=== PATIENT | male | born 1960 | race Caucasian/White ===

== ENCOUNTER 2019-02-25 01:42 | Inpatient (IN) | payer MEDICAID ==
[~2019-02-25] VITALS: Ht 182.9 cm; Wt 116.8 kg
[~2019-02-25 01:42] MED LIST: COLC0.6T67 PO; HYDR-4383 PO
[2019-02-25 02:00] VITALS: BP 119/91
[2019-02-25] MEDS ORDERED: acetaminophen 325mg tablet PO PRN ×2 (02:00)
[2019-02-25] MEDS ORDERED: mag hydrox/Alum hydrox/simeth 30ml oral suspension PO PRN (02:00)
[2019-02-25] MEDS ORDERED: magnesium hydroxide 30ml (MOM) UD suspension PO PRN (02:00)
[2019-02-25] MEDS ORDERED: HYDROcodone/acetaminophen 10/325mg tab PO PRN (02:00)
[2019-02-25] MEDS ORDERED: HYDROcodone/acetaminophen 5mg/325mg tablet PO PRN ×2 (02:00→13:55)
[2019-02-25] MEDS ORDERED: ondansetron/PF 4mg/2ml inj IV PRN (02:00)
[2019-02-25] MEDS: enoxaparin 100mg/ml syringe SUBCUT SCH ×2 (03:00→14:52)
[2019-02-25] MEDS ORDERED: ACET500C5 PO (03:00)
[2019-02-25] MEDS ORDERED: FENO145T38 PO ×2 (03:00→10:37)
[2019-02-25] MEDS ORDERED: GABA-532 PO ×2 (03:00→03:57)
[2019-02-25] MEDS ORDERED: ALLO100T PO (03:57)
[2019-02-25] MEDS ORDERED: CITA20TA2 PO (03:57)
[2019-02-25] MEDS: normal saline 1000ml 1,000 ML IV SCH ×3 (05:17→16:42)
[2019-02-25 06:00] VITALS: BP 135/96
--- NOTE | 2019-02-25 06:39 | NUR ---
Patient in room PCU 3010. I have received report from Liv GOSS and had the opportunity to ask questions and assume patient care. Pt is on 2L NC in no apparent distress. Pt denies chest pain and SOB. Pt in no apparent distress, will continue to monitor.
[2019-02-25] MEDS: aspirin 81mg tablet.DR PO SCH (08:00)
--- NOTE | 2019-02-25 09:44 | NUR ---
PAGER ID: [phone] MESSAGE: [phone] Kishan Paez Critical trop 5.03, up from 2.61. FYI. Kenyatta GOSS [phone]
[2019-02-25 09:54] LABS: ANION GAP 13 (8-16); BLOOD UREA NITROGEN 58 MG/DL (7-18); BUN/CREATININE RATIO 15.9 (5.4-32.0); CALCIUM 8.4 MG/DL (8.5-10.1); CHLORIDE 103 MMOL/L (99-107); CREATININE 3.65 MG/DL (0.60-1.10); GLUCOSE 115 MG/DL (70-104); POTASSIUM 4.3 MMOL/L (3.5-5.1); SODIUM 135 MMOL/L (135-145); TOTAL CARBON DIOXIDE 18.8 MMOL/L (24-32); eGFR 17 ML/MIN
[2019-02-25] MEDS ORDERED: HYDR-3965 PO (10:35)
[2019-02-25] MEDS ORDERED: COL0.6T PO (10:39)
[2019-02-25 11:16] LABS: BASOPHILS # (AUTO) 0.1 X10'3 (0-0.2); BASOPHILS % (AUTO) 0.9 % (0-1); EOSINOPHILS # (AUTO) 0.1 X10'3 (0-0.9); EOSINOPHILS % (AUTO) 1.1 % (0-6); HEMATOCRIT 34.8 % (42.0-52.0); HEMOGLOBIN 10.6 g/dl (14.0-17.9); LYMPHOCYTES # (AUTO) 1.4 X10'3 (1.1-4.8); LYMPHOCYTES % (AUTO) 15.6 % (21-51); MEAN CORPUSCULAR HEMOGLOBIN 26.2 PG (27.0-31.0); MEAN CORPUSCULAR HGB CONC 30.5 g/dL (33.0-36.5); MEAN CORPUSCULAR VOLUME 85.8 FL (78-98); MEAN PLATELET VOLUME 8.6 FL (7.4-10.4); MONOCYTES % (AUTO) 11.1 % (2-12); NEUTROPHILS # (AUTO) 6.6 X10'3 (1.8-7.7); NEUTROPHILS % (AUTO) 71.3 % (42-75); PLATELET COUNT 407 X10'3 (140-440); RED BLOOD COUNT 4.06 X10'6 (4.70-6.10); RED CELL DISTRIBUTION WIDTH 18.2 % (11.5-14.5); WHITE BLOOD COUNT 9.3 X10'3 (4.5-11.0)
[2019-02-25] MEDS ORDERED: colchicine 0.6mg tablet PO PRN (13:55)
--- NOTE | 2019-02-25 14:45 | NUR ---
Problems reprioritized. Patient report given, questions answered & plan of care reviewed with Logan GOSS.
--- NOTE | 2019-02-25 14:46 | NUR ---
PAGER ID: [phone] MESSAGE: [phone] Vinicius Philippe: Trop up to 8.01 WOLFGANG Ford Ext 1490
[2019-02-25] MEDS: carVEDilol 3.125mg tablet PO SCH ×2 (14:52→20:00)
--- NOTE | 2019-02-25 14:57 | NUR ---
Patient in room PCU 3010. I have received report from WOLFGANG You and had the opportunity to ask questions and assume patient care.
[2019-02-25 15:00] VITALS: BP 117/83
--- NOTE | 2019-02-25 17:10 | NUR ---
PAGER ID: [phone] MESSAGE: [phone] Vinicius Paez: Do you want Diabetic protocol orders on him? WOLFGANG Ford Ext 6220 Addendum: 02/25/19 at 1713 by Logan Gonzalez RN Dr Wing said to do accuchecks but not DM protocol due to kidneys.
--- NOTE | 2019-02-25 17:36 | NUR ---
PAGER ID: [phone] MESSAGE: [phone] Vinicius Paez: Stool too formed for c-diff. Lab told me to angelescel WOLFGANG Ford Ext 6110
[2019-02-25 18:00] VITALS: BP 115/84
--- NOTE | 2019-02-25 18:20 | NUR ---
Problems reprioritized. Patient report given, questions answered & plan of care reviewed with WOLFGANG Watters.
--- NOTE | 2019-02-25 18:25 | NUR ---
Patient in room PCU 3010. I have received report from Aleah GOSS and had the opportunity to ask questions and assume patient care. Addendum: 02/25/19 at 1829 by Janene Quezada RN Logan GOSS
--- NOTE | 2019-02-25 19:14 | NUR ---
trop came back 14.09, previous trop was 8.01, currently trying to contact [facility]
[2019-02-25] MEDS: gabapentin 300mg capsule PO PRN (20:22)
--- NOTE | 2019-02-25 21:36 | NUR ---
called [facility], said pad making machine operator and AM will have a plab with pt, called Dr. Lombardi, about his elevated troponin 14.01 he said the treatment for pt is lovenox, coreg, statin and asprin and its fine if pt asymptomatic. pt refused coreg during med pass, will explain to pt again during hourly rounding
[2019-02-25 23:00] VITALS: BP 139/83
[2019-02-26 03:00] VITALS: BP 133/66
[2019-02-26] MEDS: enoxaparin 100mg/ml syringe SUBCUT SCH (03:00)
[2019-02-26 06:00] VITALS: BP 128/77
--- NOTE | 2019-02-26 06:08 | NUR ---
Patient in room PCU 3010. I have received report from WOLFGANG Watters and had the opportunity to ask questions and assume patient care.
[2019-02-26 06:28] LABS: ALANINE AMINOTRANSFERASE 625 U/L (12-78); ALBUMIN 1.9 G/DL (3.4-5.0); ALBUMIN/GLOBULIN RATIO 0.4 (1.1-1.5); ALKALINE PHOSPHATASE 100 IU/L (46-116); ANION GAP 10 (8-16); ASPARTATE AMINO TRANSFERASE 957 U/L (10-37); BILIRUBIN,TOTAL 0.5 MG/DL (0.1-1.0); BLOOD UREA NITROGEN 62 MG/DL (7-18); BUN/CREATININE RATIO 15.5 (5.4-32.0); CALCIUM 8.5 MG/DL (8.5-10.1); CHLORIDE 101 MMOL/L (99-107); CHOL/HDL RATIO 9.9 (0.00-4.99); CHOLESTEROL 129 MG/DL (0-200); GLUCOSE 91 MG/DL (70-104); HDL CHOLESTEROL 13 MG/DL (35-60); LDL CHOLESTEROL 93 MG/DL (50-100); MAGNESIUM 1.9 MG/DL (1.5-2.4); POTASSIUM 4.4 MMOL/L (3.5-5.1); SODIUM 133 MMOL/L (135-145); TOTAL CARBON DIOXIDE 21.9 MMOL/L (24-32); TOTAL PROTEIN 6.8 G/DL (6.4-8.2); TRIGLYCERIDES 143 MG/DL (20-135); eGFR 15 ML/MIN
[2019-02-26 06:36] LABS: BASOPHILS # (AUTO) 0.1 X10'3 (0-0.2); BASOPHILS % (AUTO) 0.7 % (0-1); EOSINOPHILS # (AUTO) 0.1 X10'3 (0-0.9); HEMATOCRIT 34.6 % (42.0-52.0); HEMOGLOBIN 10.7 g/dl (14.0-17.9); LYMPHOCYTES # (AUTO) 1.5 X10'3 (1.1-4.8); LYMPHOCYTES % (AUTO) 16.3 % (21-51); MEAN CORPUSCULAR HEMOGLOBIN 26.6 PG (27.0-31.0); MEAN CORPUSCULAR HGB CONC 30.9 g/dL (33.0-36.5); MEAN CORPUSCULAR VOLUME 86.1 FL (78-98); MEAN PLATELET VOLUME 8.8 FL (7.4-10.4); NEUTROPHILS # (AUTO) 6.7 X10'3 (1.8-7.7); PLATELET COUNT 391 X10'3 (140-440); RED BLOOD COUNT 4.02 X10'6 (4.70-6.10); RED CELL DISTRIBUTION WIDTH 18.1 % (11.5-14.5); WHITE BLOOD COUNT 9.5 X10'3 (4.5-11.0)
--- NOTE | 2019-02-26 06:41 | NUR ---
Problems reprioritized. Patient report given, questions answered & plan of care reviewed with WOLFGANG You.
--- NOTE | 2019-02-26 06:44 | NUR ---
Problems reprioritized. Patient report given, questions answered & plan of care reviewed with Logan GOSS.
[2019-02-26] MEDS ORDERED: heparin 10,000 units/1 ML INJ IV ONE (06:50)
[2019-02-26] MEDS: citalopram 20mg tablet PO SCH (07:33)
[2019-02-26] MEDS: carVEDilol 3.125mg tablet PO SCH ×2 (07:33→19:36)
[2019-02-26] MEDS: aspirin 81mg tablet.DR PO SCH (07:33)
[2019-02-26 07:42] LABS: NUCLEATED RED BLOOD CELLS 2 /100WBC (0-0); TOTAL CELLS COUNTED 100
[2019-02-26 07:44] LABS: ANISOCYTOSIS 2+; BURR CELLS 1+; HYPOCHROMASIA 1+; PLATELET ESTIMATE NORMAL; POLYCHROMASIA 1+; ROULEAUX 1+; TARGET CELLS FEW
[2019-02-26] MEDS: heparin 25,000 UNIT/250ml bag 250 ML IV SCH ×3 (07:48→23:40)
[2019-02-26] MEDS: normal saline 1000ml 1,000 ML IV SCH ×2 (07:57→17:57)
[2019-02-26] MEDS ORDERED: lisinopril 5mg tablet PO SCH (08:00)
[2019-02-26] MEDS ORDERED: allopurinol 100mg tablet PO SCH (08:00)
[2019-02-26] MEDS: fenofibrate 145mg tablet PO SCH (08:04)
[2019-02-26 08:15] LABS: BASOPHILS # (AUTO) 0.1 X10'3 (0-0.2); BASOPHILS % (AUTO) 0.7 % (0-1); EOSINOPHILS # (AUTO) 0.1 X10'3 (0-0.9); EOSINOPHILS % (AUTO) 1.1 % (0-6); HEMATOCRIT 34.4 % (42.0-52.0); HEMOGLOBIN 10.7 g/dl (14.0-17.9); LYMPHOCYTES # (AUTO) 1.2 X10'3 (1.1-4.8); LYMPHOCYTES % (AUTO) 13.8 % (21-51); MEAN CORPUSCULAR HEMOGLOBIN 26.4 PG (27.0-31.0); MEAN CORPUSCULAR HGB CONC 31.1 g/dL (33.0-36.5); MEAN PLATELET VOLUME 8.8 FL (7.4-10.4); MONOCYTES # (AUTO) 0.7 X10'3 (0-0.9); MONOCYTES % (AUTO) 8.6 % (2-12); NEUTROPHILS # (AUTO) 6.4 X10'3 (1.8-7.7); NEUTROPHILS % (AUTO) 75.8 % (42-75); PLATELET COUNT 385 X10'3 (140-440); RED BLOOD COUNT 4.05 X10'6 (4.70-6.10); RED CELL DISTRIBUTION WIDTH 18.2 % (11.5-14.5); WHITE BLOOD COUNT 8.4 X10'3 (4.5-11.0)
[2019-02-26] MEDS ORDERED: loperamide 2mg capsule PO PRN (08:55)
[2019-02-26] MEDS: metroNIDAZOLE 500mg tablet PO SCH ×3 (08:57→23:48)
[2019-02-26 09:01] LABS: PARTIAL THROMBOPLASTIN TIME 29 SECONDS (22-32)
[2019-02-26 11:00] VITALS: BP 115/85
[2019-02-26] MEDS: heparin 10,000 units/1 ML INJ IV PRN ×2 (14:29→23:38)
[2019-02-26 15:00] VITALS: BP 124/82
--- NOTE | 2019-02-26 16:59 | NUR ---
PAGER ID: [phone] MESSAGE: [phone] Vinicius Paez Can I get an order for a urojet (lidocaine). Pt screaming profanity while attempting to place mejia, I also felt some resistance. Please call Kenyatta #[phone]
--- NOTE | 2019-02-26 18:46 | NUR ---
Problems reprioritized. Patient report given, questions answered & plan of care reviewed with María GOSS.
[2019-02-26] MEDS ORDERED: LIDOcaine 2% 10ml TOPICAL JELLY (Urojet) MM ONE (18:50)
[2019-02-26] MEDS: gabapentin 300mg capsule PO PRN (19:36)
[2019-02-26 20:00] VITALS: BP 104/55
[2019-02-26 23:00] VITALS: BP 117/86
[2019-02-27 03:00] VITALS: BP 94/63
[2019-02-27] MEDS: normal saline 1000ml 1,000 ML IV SCH ×2 (03:57→14:03)
[2019-02-27 05:12] LABS: BASOPHILS # (AUTO) 0.1 X10'3 (0-0.2); BASOPHILS % (AUTO) 1.1 % (0-1); EOSINOPHILS # (AUTO) 0.2 X10'3 (0-0.9); EOSINOPHILS % (AUTO) 2.8 % (0-6); HEMATOCRIT 30.2 % (42.0-52.0); HEMOGLOBIN 9.5 g/dl (14.0-17.9); LYMPHOCYTES # (AUTO) 1.3 X10'3 (1.1-4.8); LYMPHOCYTES % (AUTO) 20.4 % (21-51); MEAN CORPUSCULAR HEMOGLOBIN 26.3 PG (27.0-31.0); MEAN CORPUSCULAR HGB CONC 31.5 g/dL (33.0-36.5); MEAN CORPUSCULAR VOLUME 83.5 FL (78-98); MEAN PLATELET VOLUME 8.5 FL (7.4-10.4); MONOCYTES # (AUTO) 0.8 X10'3 (0-0.9); MONOCYTES % (AUTO) 12.6 % (2-12); NEUTROPHILS % (AUTO) 63.1 % (42-75); PLATELET COUNT 300 X10'3 (140-440); RED BLOOD COUNT 3.62 X10'6 (4.70-6.10); RED CELL DISTRIBUTION WIDTH 18.6 % (11.5-14.5); WHITE BLOOD COUNT 6.3 X10'3 (4.5-11.0)
[2019-02-27 06:30] LABS: ALANINE AMINOTRANSFERASE 483 U/L (12-78); ALBUMIN 1.8 G/DL (3.4-5.0); ALBUMIN/GLOBULIN RATIO 0.4 (1.1-1.5); ALKALINE PHOSPHATASE 92 IU/L (46-116); ANION GAP 11 (8-16); ASPARTATE AMINO TRANSFERASE 468 U/L (10-37); BILIRUBIN,TOTAL 0.3 MG/DL (0.1-1.0); BLOOD UREA NITROGEN 66 MG/DL (7-18); BUN/CREATININE RATIO 16.1 (5.4-32.0); CALCIUM 8.3 MG/DL (8.5-10.1); CHLORIDE 101 MMOL/L (99-107); CREATININE 4.09 MG/DL (0.60-1.10); GLUCOSE 129 MG/DL (70-104); MAGNESIUM 1.7 MG/DL (1.5-2.4); POTASSIUM 3.9 MMOL/L (3.5-5.1); SODIUM 131 MMOL/L (135-145); TOTAL CARBON DIOXIDE 19.1 MMOL/L (24-32); TOTAL PROTEIN 6.3 G/DL (6.4-8.2); eGFR 15 ML/MIN
--- NOTE | 2019-02-27 06:31 | NUR ---
Patient in room PCU 3010. I have received report from Baltazar GOSS and had the opportunity to ask questions and assume patient care.
[2019-02-27] MEDS: heparin 10,000 units/1 ML INJ IV PRN (06:39)
[2019-02-27] MEDS: heparin 25,000 UNIT/250ml bag 250 ML IV SCH (06:43)
[2019-02-27 07:00] VITALS: BP 98/62
[2019-02-27] MEDS ORDERED: atorvastatin 20mg tablet PO SCH (08:00)
[2019-02-27] MEDS: carVEDilol 3.125mg tablet PO SCH (09:05)
[2019-02-27] MEDS: aspirin 81mg tablet.DR PO SCH (09:05)
[2019-02-27] MEDS: metroNIDAZOLE 500mg tablet PO SCH (09:05)
[2019-02-27] MEDS: citalopram 20mg tablet PO SCH (09:05)
[2019-02-27] MEDS: fenofibrate 145mg tablet PO SCH (09:05)
[2019-02-27 11:00] VITALS: BP 110/79
--- NOTE | 2019-02-27 14:03 | NUR ---
Pt's cardiac PTT is 44, however, pt pulled out his IV this morning and pt went about an hour off Heparin gtt. Heparin gtt resumed at 1900 units/hour once new IV was placed. In my clinical judgment it is inappropriate to bolus and increase infusion rate at this time, notified charge nurse and she is in agreement. PTT is scheduled six hours from 1300. Will continue to monitor.
--- NOTE | 2019-02-27 14:41 | NUR ---
PAGER ID: [phone] MESSAGE: [phone] Vinicius Paez Pt stating that he is going to leave AMA. Pt is willing to talk to doctor first. Please call Kenyatta#[phone]
--- NOTE | 2019-02-27 15:00 | NUR ---
Pt signed AMA form and is refusing all medical treatment. Pt not wanting to talk to MD. Landeros RN and myself have both educated pt on importance of staying in the hospital for medical treatment. However, pt stated that he already called his nurse healthcare manager Sandhya and that she is on her way from [place] to pick him up. Dr. Camacho is aware of this. IV discontinued with canula intact and tele monitor is off patient.
--- NOTE | 2019-02-27 17:40 | NUR ---
Pt left AMA. Pt specifically denied suicidal ideations.
== END 2019-02-27 17:30 | disposition left against medical advice (07) | DRG 190 ==
LOC: PCU 3S 01:42
PROVIDERS: ADMIT Hospitalist; ATTEND Internal Medicine
DX: I21.4 Non-ST elevation (NSTEMI) myocardial infarction (principal); N17.9 Acute kidney failure, unspecified; E11.22 Type 2 diabetes mellitus with diabetic chronic kidney disease; E11.42 Type 2 diabetes mellitus with diabetic polyneuropathy; E11.51 Type 2 diabetes mellitus with diabetic peripheral angiopathy without gangrene; E78.00 Pure hypercholesterolemia, unspecified; E78.1 Pure hyperglyceridemia; E86.0 Dehydration; F14.10 Cocaine abuse, uncomplicated; F15.10 Other stimulant abuse, uncomplicated; I42.9 Cardiomyopathy, unspecified; Z53.21 Procedure and treatment not carried out due to patient leaving prior to being seen by health care provider; F17.210 Nicotine dependence, cigarettes, uncomplicated; I07.1 Rheumatic tricuspid insufficiency; I07.9 Rheumatic tricuspid valve disease, unspecified; D64.9 Anemia, unspecified; I13.0 Hypertensive heart and chronic kidney disease with heart failure and stage 1 through stage 4 chronic kidney disease, or unspecified chronic kidney disease; I45.10 Unspecified right bundle-branch block; I50.22 Chronic systolic (congestive) heart failure; J44.9 Chronic obstructive pulmonary disease, unspecified; R19.7 Diarrhea, unspecified; M10.9 Gout, unspecified; N18.9 Chronic kidney disease, unspecified; Z86.79 Personal history of other diseases of the circulatory system; Z79.899 Other long term (current) drug therapy; Z71.6 Tobacco abuse counseling; Z71.51 Drug abuse counseling and surveillance of drug abuser
CPT/HCPCS: 36415; 74176; 80048; 80053; 80061; 82948; 83036; 83735; 84484; 85025; 85610; 85730; 87070; 93005; 93306; 99285; G0378; J1644; J1650; J3490; J7030

== ENCOUNTER 2019-02-28 23:48 | Inpatient (IN) | payer MEDICAID ==
[~2019-02-28] VITALS: Ht 182.9 cm; Wt 105.5 kg
[~2019-02-28 23:48] MED LIST changes: +ALLO100T PO; +CITA20TA2 PO; +COL0.6T PO; -COLC0.6T67 PO; +FENO145T38 PO; +GABA-532 PO; +HYDR-3965 PO; -HYDR-4383 PO
--- NOTE | 2019-02-28 23:53 | NUR ---
REPORT RECEIVED FROM JENNIFER BAIRES, RN FROM [facility] AT 22:33: [phone] CALLBACK # ACCEPTING MD: TOSHA PATIENT HAD STEMI HERE AT [facility] ON 02/25 AND LEFT AMA 02/27 C/O SOB NO ST ELEVATION: SR NO ECTOPY, 96% ON RA, AXOX4, DENIES PAIN LEFT FA 20G SL MEDICATIONS GIVEN: 100 MG SQ LOVENOX, 325 ASA LABS: TROPONIN 14.3, BNP 7410 HGB 9.4, CREAtinine 3.8, PLT 327
[2019-03-01] MEDS ORDERED: LORazepam 2 mg/ml vial IV ONE (01:00)
[2019-03-01 01:08] LABS: CLARITY,URINE CLEAR (Clear); COLOR,URINE YELLOW (Yellow); GLUCOSE, URINE NEGATIVE (Neg); KETONES,URINE NEGATIVE (Neg); LEUKOCYTE ESTERASE ,URINE NEGATIVE (Neg); NITRITES, URINE NEGATIVE (Neg); OCCULT BLOOD,URINE SMALL (Neg); PH,URINE 5.5 (4.8-8.0); PROTEIN,URINE 100 mg/dl (Neg); UROBILINOGEN,URINE 0.2 E.U/dL (0.2-1.0)
[2019-03-01] MEDS ORDERED: carVEDilol 12.5mg tablet PO ONE (01:10)
[2019-03-01 01:14] LABS: UA COLLECTION TYPE URINAL
[2019-03-01 01:15] LABS: BACTERIA,URINE FEW /HPF (Neg); RBC,URINE FEW /HPF (0-2); WBC,URINE 0-4 /HPF (0-4)
[2019-03-01 01:20] LABS: SQUAMOUS EPITHELIAL CELL,UR FEW /LPF (FEW)
[2019-03-01 02:00] LABS: BASOPHILS % (AUTO) 0.2 % (0-1); EOSINOPHILS # (AUTO) 0.1 X10'3 (0-0.9); EOSINOPHILS % (AUTO) 1.1 % (0-6); HEMATOCRIT 32.2 % (42.0-52.0); HEMOGLOBIN 10.2 g/dl (14.0-17.9); LYMPHOCYTES # (AUTO) 1.7 X10'3 (1.1-4.8); LYMPHOCYTES % (AUTO) 21.9 % (21-51); MEAN CORPUSCULAR HEMOGLOBIN 26.2 PG (27.0-31.0); MEAN CORPUSCULAR HGB CONC 31.6 g/dL (33.0-36.5); MEAN PLATELET VOLUME 8.5 FL (7.4-10.4); MONOCYTES # (AUTO) 0.9 X10'3 (0-0.9); MONOCYTES % (AUTO) 10.9 % (2-12); NEUTROPHILS # (AUTO) 5.2 X10'3 (1.8-7.7); NEUTROPHILS % (AUTO) 65.9 % (42-75); PLATELET COUNT 356 X10'3 (140-440); RED BLOOD COUNT 3.88 X10'6 (4.70-6.10); RED CELL DISTRIBUTION WIDTH 18.2 % (11.5-14.5); WHITE BLOOD COUNT 7.8 X10'3 (4.5-11.0)
[2019-03-01] MEDS ORDERED: magnesium Cl slow-release 64mg tablet PO PRN (02:10)
[2019-03-01] MEDS ORDERED: potassium Cl 20 mEq SR tablet PO PRN ×2 (02:10)
[2019-03-01] MEDS ORDERED: mag hydrox/Alum hydrox/simeth 30ml oral suspension PO PRN (02:10)
[2019-03-01] MEDS ORDERED: magnesium hydroxide 30ml (MOM) UD suspension PO PRN (02:10)
[2019-03-01] MEDS ORDERED: morphine 2 MG/ML inj. syringe IV PRN ×2 (02:10)
[2019-03-01] MEDS ORDERED: magnesium 4gm in 100ml NS 100 ML IV PRN (02:10)
[2019-03-01] MEDS ORDERED: bisacodyl 10mg suppository rectal RC PRN (02:10)
[2019-03-01] MEDS ORDERED: potassium Cl 40MEQ/NS 500ml 500 ML IV PRN (02:10)
[2019-03-01] MEDS ORDERED: potassium CL 10mEq/100ml bag 100 ML IV PRN (02:10)
[2019-03-01] MEDS ORDERED: magnesium 2GM in 50ml NS 50 ML IV PRN (02:10)
[2019-03-01] MEDS ORDERED: acetaminophen 325mg tablet PO PRN (02:10)
[2019-03-01 02:12] LABS: PARTIAL THROMBOPLASTIN TIME 36 SECONDS (22-32)
[2019-03-01] MEDS ORDERED: heparin 25,000 UNIT/250ml bag 250 ML IV SCH (02:13)
[2019-03-01] MEDS ORDERED: nitroGLYCERIN 0.4mg SUBLingual tab SL PRN (02:15)
[2019-03-01] MEDS ORDERED: heparin 10,000 units/1 ML INJ IV ONE (02:15)
[2019-03-01] MEDS ORDERED: heparin 10,000 units/1 ML INJ IV PRN (02:15)
[2019-03-01] MEDS: nitroGLYCERIN 0.2mg/hour patch TD SCH ×2 (02:15→08:32)
[2019-03-01] MEDS ORDERED: insulin Lispro (HumaLOG) vial - multi-dose SQ SCH (02:20)
[2019-03-01] MEDS ORDERED: dextrose ORAL solution 15 GM/59 ML bottle PO PRN ×2 (02:20)
[2019-03-01] MEDS ORDERED: glucagon, human recombinant 1mg kit SUBCUT PRN (02:20)
[2019-03-01] MEDS ORDERED: dextrose 50%-water 50ml dispensing syringe IV PRN ×2 (02:20)
[2019-03-01] MEDS ORDERED: MESSAGE TO PHARMACY PO ONE (02:20)
[2019-03-01 02:21] LABS: ALANINE AMINOTRANSFERASE 334 U/L (12-78); ALBUMIN 2.2 G/DL (3.4-5.0); ALBUMIN/GLOBULIN RATIO 0.5 (1.1-1.5); ALKALINE PHOSPHATASE 87 IU/L (46-116); ANION GAP 10 (8-16); ASPARTATE AMINO TRANSFERASE 228 U/L (10-37); BILIRUBIN,TOTAL 0.4 MG/DL (0.1-1.0); BLOOD UREA NITROGEN 83 MG/DL (7-18); CALCIUM 8.5 MG/DL (8.5-10.1); CHLORIDE 102 MMOL/L (99-107); CREATININE 4.14 MG/DL (0.60-1.10); ETHANOL < 0.010 GM/DL (0.0-0.010); GLUCOSE 97 MG/DL (70-104); MAGNESIUM 2.2 MG/DL (1.5-2.4); POTASSIUM 4.1 MMOL/L (3.5-5.1); SODIUM 135 MMOL/L (135-145); TOTAL CARBON DIOXIDE 23.2 MMOL/L (24-32); eGFR 15 ML/MIN
[2019-03-01] MEDS: furosemide 40mg/4ml inj IV SCH ×3 (04:07→19:41)
[2019-03-01] MEDS: aspirin 325mg tablet, delayed-release (Ecotrin) PO SCH ×2 (04:11→08:00)
--- NOTE | 2019-03-01 04:37 | NUR ---
Patient in room . I have received report from Stephanie GOSS and had the opportunity to ask questions and assume patient care.
--- NOTE | 2019-03-01 04:37 | NUR ---
PAGER ID: [phone] MESSAGE: Vinicius Molina transferring from ER to PCU has bipap order without ABG done, can you put on an order for ABG. Thanks, Janene [phone]!
--- NOTE | 2019-03-01 04:39 | NUR ---
dr. cantu called back siad "pt don need bipap, no ABG needed, pit him on nasal canula 2-3L, O2 about 92%."
--- NOTE | 2019-03-01 05:35 | NUR ---
pt is very SOB, heparin gtt @1000, NS @ 2L, anxious and restless
[2019-03-01 06:00] VITALS: BP 107/73
--- NOTE | 2019-03-01 06:24 | NUR ---
Problems reprioritized. Patient report given, questions answered & plan of care reviewed with Leeanna GOSS.
--- NOTE | 2019-03-01 06:31 | NUR ---
Patient in room U 3024B. I have received report from Janene GOSS and had the opportunity to ask questions and assume patient care.
[2019-03-01] MEDS: carvedilol 6.25mg tablet PO SCH ×3 (08:00→20:28)
[2019-03-01] MEDS: docusate sod 100mg capsule PO SCH ×2 (08:00→19:43)
[2019-03-01] MEDS: K and/or MAG REPLACEMENT MC SCH (08:00)
--- NOTE | 2019-03-01 08:00 | NUR ---
Paged Dr Camacho regarding critical trop PAGER ID: [phone] MESSAGE: Leeanna [phone]. Kishan Larson 3024B Critical trop reported from lab of , down from prior trop of
[2019-03-01 11:00] VITALS: BP 117/97
[2019-03-01] MEDS ORDERED: HYDROcodone/acetaminophen 5mg/325mg tablet PO PRN (11:50)
[2019-03-01 12:23] LABS: URINE AMPHETAMINE SCREEN NEGATIVE (Neg); URINE BARBITUATE SCREEN NEGATIVE (Neg); URINE BENZODIAZEPINES SCREEN NEGATIVE (Neg); URINE CANNABINOID SCREEN NEGATIVE (Neg); URINE COCAINE SCREEN NEGATIVE (Neg); URINE METHADONE SCREEN NEGATIVE (Neg); URINE OPIATE SCREEN NEGATIVE (Neg); URINE PHENCYCLIDINE SCREEN NEGATIVE (Neg)
--- NOTE | 2019-03-01 12:23 | NUR ---
Paged Dr Camacho regarding critical trop PAGER ID: [phone] MESSAGE: Leeanna [phone]. Kishan Larson [id number]. Lab called critical trop of 14.93
[2019-03-01 15:00] VITALS: BP 101/64
[2019-03-01] MEDS ORDERED: METO-384 PO (16:04)
[2019-03-01] MEDS ORDERED: MELO-102 PO (16:05)
[2019-03-01] MEDS ORDERED: INSU100I39 SUBCUT (16:05)
[2019-03-01] MEDS ORDERED: AMLO5TAB16 PO (16:05)
[2019-03-01] MEDS ORDERED: BECL10.62 INH (16:07)
--- NOTE | 2019-03-01 18:05 | NUR ---
Patient in room PCU 3024. I have received report from Leeanna GOSS and had the opportunity to ask questions and assume patient care.
--- NOTE | 2019-03-01 18:22 | NUR ---
Problems reprioritized. Patient report given, questions answered & plan of care reviewed with Janene GOSS.
[2019-03-01 19:00] VITALS: BP 124/100
[2019-03-01] MEDS: heparin, porcine 5000 units/ml vial SQ SCH (19:43)
[2019-03-01 23:00] VITALS: BP 101/58
[2019-03-02 01:10] LABS: TOTAL PROTEIN,URINE RANDOM 69.9 MG/DL
[2019-03-02 03:00] VITALS: BP 139/91
[2019-03-02 05:08] LABS: BASOPHILS % (AUTO) 0.6 % (0-1); EOSINOPHILS # (AUTO) 0.1 X10'3 (0-0.9); EOSINOPHILS % (AUTO) 1.9 % (0-6); HEMATOCRIT 30.4 % (42.0-52.0); HEMOGLOBIN 9.7 g/dl (14.0-17.9); LYMPHOCYTES # (AUTO) 1.3 X10'3 (1.1-4.8); LYMPHOCYTES % (AUTO) 23.5 % (21-51); MEAN CORPUSCULAR HEMOGLOBIN 26.2 PG (27.0-31.0); MEAN PLATELET VOLUME 8.1 FL (7.4-10.4); MONOCYTES # (AUTO) 0.6 X10'3 (0-0.9); MONOCYTES % (AUTO) 10.2 % (2-12); NEUTROPHILS # (AUTO) 3.6 X10'3 (1.8-7.7); NEUTROPHILS % (AUTO) 63.8 % (42-75); PLATELET COUNT 295 X10'3 (140-440); RED BLOOD COUNT 3.71 X10'6 (4.70-6.10); RED CELL DISTRIBUTION WIDTH 17.9 % (11.5-14.5); WHITE BLOOD COUNT 5.7 X10'3 (4.5-11.0)
[2019-03-02 05:26] LABS: ALANINE AMINOTRANSFERASE 252 U/L (12-78); ALBUMIN/GLOBULIN RATIO 0.4 (1.1-1.5); ALKALINE PHOSPHATASE 77 IU/L (46-116); ANION GAP 10 (8-16); ASPARTATE AMINO TRANSFERASE 130 U/L (10-37); BILIRUBIN,TOTAL 0.5 MG/DL (0.1-1.0); BLOOD UREA NITROGEN 77 MG/DL (7-18); BUN/CREATININE RATIO 20.3 (5.4-32.0); CALCIUM 8.8 MG/DL (8.5-10.1); CHLORIDE 102 MMOL/L (99-107); GLUCOSE 91 MG/DL (70-104); MAGNESIUM 1.9 MG/DL (1.5-2.4); POTASSIUM 4.1 MMOL/L (3.5-5.1); SODIUM 133 MMOL/L (135-145); TOTAL CARBON DIOXIDE 20.7 MMOL/L (24-32); TOTAL PROTEIN 6.6 G/DL (6.4-8.2); eGFR 16 ML/MIN
--- NOTE | 2019-03-02 06:27 | NUR ---
Patient in room PCU 3024. I have received report from Leeanna GOSS and had the opportunity to ask questions and assume patient care.
[2019-03-02 06:30] VITALS: BP 132/87
--- NOTE | 2019-03-02 07:34 | NUR ---
Patient in room U 3024B. I have received report from Janene GOSS and had the opportunity to ask questions and assume patient care.
[2019-03-02] MEDS: K and/or MAG REPLACEMENT MC SCH (07:40)
[2019-03-02] MEDS: docusate sod 100mg capsule PO SCH ×2 (07:45→20:00)
[2019-03-02] MEDS: aspirin 325mg tablet, delayed-release (Ecotrin) PO SCH (07:45)
[2019-03-02] MEDS: carvedilol 6.25mg tablet PO SCH (07:45)
[2019-03-02] MEDS: heparin, porcine 5000 units/ml vial SQ SCH ×2 (07:47→19:44)
[2019-03-02] MEDS: furosemide 40mg/4ml inj IV SCH ×2 (07:47→19:44)
[2019-03-02] MEDS: nitroGLYCERIN 0.2mg/hour patch TD SCH (07:59)
[2019-03-02] MEDS ORDERED: HYDROcodone/acetaminophen 5mg/325mg tablet PO PRN (09:20)
[2019-03-02 11:00] VITALS: BP 117/79
[2019-03-02] MEDS: gabapentin 300mg capsule PO PRN ×2 (11:42→19:44)
[2019-03-02] MEDS: fenofibrate 145mg tablet PO SCH (11:42)
[2019-03-02] MEDS: citalopram 20mg tablet PO SCH (11:42)
[2019-03-02] MEDS: metoprolol succinate 25mg (24-HOUR) SR. Tablet PO SCH (11:42)
[2019-03-02] MEDS: amLODIPine 5mg tablet PO SCH (11:43)
--- NOTE | 2019-03-02 12:54 | NUR ---
Following page sent to Dr Camacho: PAGER ID: [phone] MESSAGE: RE: Vinicius Paez [id number]. Pt distressed due to pain; requesting higher or more frequent dose of gabapentin for foot pain. Last dose of gabapentin given at 1142. Allergic to [place] per pt.
--- NOTE | 2019-03-02 13:00 | NUR ---
Following page sent to Dr Camacho: PAGER ID: [phone] MESSAGE: RE: Vinicius Paez [id number]. Previous page sent by WOLFGANG Duffy x [phone]
--- NOTE | 2019-03-02 15:05 | NUR ---
Pt did not receive a 2 RN skin assessment upon admission. WOLFGANG Jo and I have completed a 2 RN skin assessment, and have taken wound pictures. Pt has a large scar on his back from an electrocution. There is generalized bruising. Dry, scaly skin on BLE. Quarter sized open sore on his left richard, which was a scab that the pt picked off.
--- NOTE | 2019-03-02 18:29 | NUR ---
Patient in room PCU 3024. I have received report from Tati GOSS and had the opportunity to ask questions and assume patient care.
[2019-03-02] MEDS: budesonide 0.5mg/2ml UD nebule IH SCH (20:36)
[2019-03-02 23:00] VITALS: BP 108/77
[2019-03-03 03:00] VITALS: BP 135/89
[2019-03-03 05:17] LABS: BASOPHILS % (AUTO) 0.4 % (0-1); EOSINOPHILS # (AUTO) 0.1 X10'3 (0-0.9); EOSINOPHILS % (AUTO) 1.9 % (0-6); HEMATOCRIT 30.7 % (42.0-52.0); HEMOGLOBIN 9.7 g/dl (14.0-17.9); LYMPHOCYTES # (AUTO) 1.6 X10'3 (1.1-4.8); LYMPHOCYTES % (AUTO) 31.8 % (21-51); MEAN CORPUSCULAR HEMOGLOBIN 25.7 PG (27.0-31.0); MEAN CORPUSCULAR HGB CONC 31.8 g/dL (33.0-36.5); MEAN CORPUSCULAR VOLUME 80.9 FL (78-98); MEAN PLATELET VOLUME 8.1 FL (7.4-10.4); MONOCYTES # (AUTO) 0.6 X10'3 (0-0.9); MONOCYTES % (AUTO) 11.5 % (2-12); NEUTROPHILS # (AUTO) 2.7 X10'3 (1.8-7.7); NEUTROPHILS % (AUTO) 54.4 % (42-75); PLATELET COUNT 320 X10'3 (140-440); RED BLOOD COUNT 3.79 X10'6 (4.70-6.10); RED CELL DISTRIBUTION WIDTH 17.6 % (11.5-14.5); WHITE BLOOD COUNT 4.9 X10'3 (4.5-11.0)
[2019-03-03 05:45] LABS: ALANINE AMINOTRANSFERASE 197 U/L (12-78); ALBUMIN 2.1 G/DL (3.4-5.0); ALBUMIN/GLOBULIN RATIO 0.5 (1.1-1.5); ALKALINE PHOSPHATASE 71 IU/L (46-116); ANION GAP 12 (8-16); ASPARTATE AMINO TRANSFERASE 88 U/L (10-37); BILIRUBIN,TOTAL 0.4 MG/DL (0.1-1.0); BLOOD UREA NITROGEN 79 MG/DL (7-18); BUN/CREATININE RATIO 22.6 (5.4-32.0); CALCIUM 8.9 MG/DL (8.5-10.1); CHLORIDE 100 MMOL/L (99-107); GLUCOSE 81 MG/DL (70-104); MAGNESIUM 1.8 MG/DL (1.5-2.4); POTASSIUM 3.7 MMOL/L (3.5-5.1); SODIUM 137 MMOL/L (135-145); TOTAL CARBON DIOXIDE 25.5 MMOL/L (24-32); TOTAL PROTEIN 6.6 G/DL (6.4-8.2); eGFR 18 ML/MIN
--- NOTE | 2019-03-03 06:20 | NUR ---
Patient in room PCU 3024. I have received report from WOLFGANG Watters and had the opportunity to ask questions and assume patient care.
--- NOTE | 2019-03-03 06:36 | NUR ---
Problems reprioritized. Patient report given, questions answered & plan of care reviewed with Logan GOSS.
[2019-03-03 07:00] VITALS: BP 142/94
[2019-03-03] MEDS: docusate sod 100mg capsule PO SCH ×2 (08:00→20:00)
[2019-03-03] MEDS: K and/or MAG REPLACEMENT MC SCH (08:00)
[2019-03-03] MEDS: furosemide 40mg/4ml inj IV SCH ×2 (08:32→20:11)
[2019-03-03] MEDS: allopurinol 100mg tablet PO SCH (08:32)
[2019-03-03] MEDS: fenofibrate 145mg tablet PO SCH (08:32)
[2019-03-03] MEDS: amLODIPine 5mg tablet PO SCH (08:33)
[2019-03-03] MEDS: citalopram 20mg tablet PO SCH (08:33)
[2019-03-03] MEDS: heparin, porcine 5000 units/ml vial SQ SCH ×2 (08:33→20:11)
[2019-03-03] MEDS: aspirin 325mg tablet, delayed-release (Ecotrin) PO SCH (08:34)
[2019-03-03] MEDS: metoprolol succinate 25mg (24-HOUR) SR. Tablet PO SCH (08:34)
[2019-03-03] MEDS: nitroGLYCERIN 0.2mg/hour patch TD SCH (08:35)
[2019-03-03] MEDS: budesonide 0.5mg/2ml UD nebule IH SCH ×2 (09:47→19:33)
[2019-03-03 11:00] VITALS: BP 118/81
[2019-03-03 15:00] VITALS: BP 129/74
[2019-03-03] MEDS: gabapentin 300mg capsule PO PRN (15:38)
--- NOTE | 2019-03-03 17:30 | NUR ---
Orientee documentation: I have reviewed and agree with all interventions, assessments performed and documented by WOLFGANG Duffy.
--- NOTE | 2019-03-03 17:32 | NUR ---
Orientee Medication Administration: For this medication-pass time frame, all medication were reviewed, dispensed, administered and documented per hospital policy by WOLFGANG Duffy.
[2019-03-03 18:00] VITALS: BP 129/74
--- NOTE | 2019-03-03 18:14 | NUR ---
Problems reprioritized. Patient report given, questions answered & plan of care reviewed with WOLFGANG Linton and WOLFGANG Alves.
--- NOTE | 2019-03-03 18:30 | NUR ---
Patient in room PCU 3024. I have received report from Logan RN and Tati RN and had the opportunity to ask questions and assume patient care.
[2019-03-03 23:00] VITALS: BP 130/80
[2019-03-04] VITALS (7 sets, daily range): BP systolic 94–151; BP diastolic 50–88
[2019-03-04] MEDS: gabapentin 300mg capsule PO PRN (05:13)
[2019-03-04 05:19] LABS: ALBUMIN, UR 58.2 % (.); ALPHA-2-GLOBULIN,UR 4.8 % (.); BETA GLOBULIN, UR 15.8 % (.); GAMMA GLOBULIN,UR 11.2 % (.); PROTEIN,TOTAL,URINE 69.3 mg/dL (Not Estab.)
--- NOTE | 2019-03-04 05:38 | NUR ---
Orientee documentation: I have reviewed and agree with all interventions, assessments performed and documented by James Johnson RN . Orientee Medication Administration: For this medication-pass time frame, all medication were reviewed, dispensed, administered and documented per hospital policy by James Johnson RN.
--- NOTE | 2019-03-04 06:15 | NUR ---
Patient in room PCU 3024. I have received report from Royer/Long GOSS and had the opportunity to ask questions and assume patient care.
--- NOTE | 2019-03-04 06:27 | NUR ---
Problems reprioritized. Patient report given, questions answered & plan of care reviewed with David GOSS.
[2019-03-04 06:45] LABS: BASOPHILS % (AUTO) 0.7 % (0-1); EOSINOPHILS # (AUTO) 0.1 X10'3 (0-0.9); EOSINOPHILS % (AUTO) 1.5 % (0-6); HEMATOCRIT 31.3 % (42.0-52.0); LYMPHOCYTES # (AUTO) 1.8 X10'3 (1.1-4.8); LYMPHOCYTES % (AUTO) 34.3 % (21-51); MEAN PLATELET VOLUME 8.1 FL (7.4-10.4); MONOCYTES # (AUTO) 0.6 X10'3 (0-0.9); MONOCYTES % (AUTO) 11.6 % (2-12); NEUTROPHILS # (AUTO) 2.8 X10'3 (1.8-7.7); NEUTROPHILS % (AUTO) 51.9 % (42-75); PLATELET COUNT 347 X10'3 (140-440); RED BLOOD COUNT 3.86 X10'6 (4.70-6.10); RED CELL DISTRIBUTION WIDTH 17.9 % (11.5-14.5); WHITE BLOOD COUNT 5.4 X10'3 (4.5-11.0)
[2019-03-04 07:07] LABS: ALANINE AMINOTRANSFERASE 171 U/L (12-78); ALBUMIN 2.2 G/DL (3.4-5.0); ALBUMIN/GLOBULIN RATIO 0.5 (1.1-1.5); ALKALINE PHOSPHATASE 71 IU/L (46-116); ANION GAP 10 (8-16); ASPARTATE AMINO TRANSFERASE 66 U/L (10-37); BILIRUBIN,TOTAL 0.4 MG/DL (0.1-1.0); BLOOD UREA NITROGEN 77 MG/DL (7-18); BUN/CREATININE RATIO 24.4 (5.4-32.0); CALCIUM 8.9 MG/DL (8.5-10.1); CHLORIDE 99 MMOL/L (99-107); CREATININE 3.15 MG/DL (0.60-1.10); GLUCOSE 88 MG/DL (70-104); MAGNESIUM 1.8 MG/DL (1.5-2.4); POTASSIUM 3.8 MMOL/L (3.5-5.1); SODIUM 136 MMOL/L (135-145); TOTAL CARBON DIOXIDE 26.6 MMOL/L (24-32); eGFR 20 ML/MIN
[2019-03-04] MEDS: docusate sod 100mg capsule PO SCH ×2 (08:00→20:00)
[2019-03-04] MEDS: K and/or MAG REPLACEMENT MC SCH (08:00)
[2019-03-04] MEDS: heparin, porcine 5000 units/ml vial SQ SCH ×2 (08:12→20:25)
[2019-03-04] MEDS: furosemide 40mg/4ml inj IV SCH ×2 (08:12→20:24)
[2019-03-04] MEDS: aspirin 325mg tablet, delayed-release (Ecotrin) PO SCH (08:13)
[2019-03-04] MEDS: metoprolol succinate 25mg (24-HOUR) SR. Tablet PO SCH (08:13)
[2019-03-04] MEDS: amLODIPine 5mg tablet PO SCH (08:13)
[2019-03-04] MEDS: allopurinol 100mg tablet PO SCH (08:14)
[2019-03-04] MEDS: citalopram 20mg tablet PO SCH (08:14)
[2019-03-04] MEDS: fenofibrate 145mg tablet PO SCH (08:14)
[2019-03-04] MEDS: nitroGLYCERIN 0.2mg/hour patch TD SCH (08:15)
[2019-03-04 08:16] LABS: A/G RATIO 0.6 (0.7-1.7); ALBUMIN 2.4 g/dL (2.9-4.4); BETA GLOBULIN 1.3 g/dL (0.7-1.3); GAMMA GLOBULIN 1.2 g/dL (0.4-1.8); GLOBULIN, TOTAL 3.8 g/dL (2.2-3.9); M-SPIKE Not Observed g/dL (Not Observed); PROTEIN, TOTAL, SERUM 6.2 g/dL (6.0-8.5)
[2019-03-04] MEDS: budesonide 0.5mg/2ml UD nebule IH SCH ×2 (08:51→20:32)
--- NOTE | 2019-03-04 10:40 | NUR ---
PAGER ID: [phone] MESSAGE: RE: Vinicius Paez, room: 3024b. Pts Bledsoe was DC'd early this morning for pain. Norcos make him confused. Can we get him dilaudid .5mg for pain, it has worked for him in the past. -David [facility] #[phone] Dr. Camacho paged concerning Pts pain medication
[2019-03-04] MEDS: traMADol 50MG tablet PO PRN (11:27)
[2019-03-04] MEDS: gabapentin 300mg capsule PO SCH ×2 (16:29→23:59)
--- NOTE | 2019-03-04 18:15 | NUR ---
Problems reprioritized. Patient report given, questions answered & plan of care reviewed with Royer/Long GOSS.
[2019-03-05 03:00] VITALS: BP 109/69
[2019-03-05 05:46] LABS: BASOPHILS % (AUTO) 0.9 % (0-1); EOSINOPHILS # (AUTO) 0.1 X10'3 (0-0.9); EOSINOPHILS % (AUTO) 1.3 % (0-6); HEMATOCRIT 33.1 % (42.0-52.0); HEMOGLOBIN 10.9 g/dl (14.0-17.9); LYMPHOCYTES # (AUTO) 1.6 X10'3 (1.1-4.8); LYMPHOCYTES % (AUTO) 29.4 % (21-51); MEAN CORPUSCULAR HEMOGLOBIN 26.5 PG (27.0-31.0); MEAN CORPUSCULAR HGB CONC 32.8 g/dL (33.0-36.5); MEAN CORPUSCULAR VOLUME 80.7 FL (78-98); MEAN PLATELET VOLUME 8.1 FL (7.4-10.4); MONOCYTES # (AUTO) 0.6 X10'3 (0-0.9); NEUTROPHILS % (AUTO) 56.4 % (42-75); PLATELET COUNT 330 X10'3 (140-440); RED BLOOD COUNT 4.11 X10'6 (4.70-6.10); RED CELL DISTRIBUTION WIDTH 18.2 % (11.5-14.5); WHITE BLOOD COUNT 5.3 X10'3 (4.5-11.0)
[2019-03-05 05:49] LABS: ALANINE AMINOTRANSFERASE 143 U/L (12-78); ALBUMIN 2.4 G/DL (3.4-5.0); ALBUMIN/GLOBULIN RATIO 0.5 (1.1-1.5); ALKALINE PHOSPHATASE 72 IU/L (46-116); ANION GAP 5 (8-16); ASPARTATE AMINO TRANSFERASE 51 U/L (10-37); BILIRUBIN,TOTAL 0.5 MG/DL (0.1-1.0); BLOOD UREA NITROGEN 77 MG/DL (7-18); BUN/CREATININE RATIO 23.6 (5.4-32.0); CHLORIDE 99 MMOL/L (99-107); CREATININE 3.26 MG/DL (0.60-1.10); GLUCOSE 85 MG/DL (70-104); MAGNESIUM 1.8 MG/DL (1.5-2.4); PHOSPHORUS 4.7 MG/DL (2.3-4.5); POTASSIUM 3.7 MMOL/L (3.5-5.1); SODIUM 136 MMOL/L (135-145); TOTAL CARBON DIOXIDE 32.4 MMOL/L (24-32); TOTAL PROTEIN 7.3 G/DL (6.4-8.2); eGFR 20 ML/MIN
--- NOTE | 2019-03-05 06:10 | NUR ---
Problems reprioritized. Patient report given, questions answered & plan of care reviewed with David GOSS.
--- NOTE | 2019-03-05 06:10 | NUR ---
Patient in room PCU 3024. I have received report from Royer/Long GOSS and had the opportunity to ask questions and assume patient care.
--- NOTE | 2019-03-05 06:26 | NUR ---
ORIENTEE documentation: I have reviewed and agree with all interventions, assessments performed and documented by Quyen LÓPEZ RN. ORIENTEE Medication Administration: For this medication-pass time frame, all medication were reviewed, dispensed, administered and documented per hospital policy by Quyen LÓPEZ RN.
[2019-03-05 07:00] VITALS: BP 115/72
[2019-03-05] MEDS: heparin, porcine 5000 units/ml vial SQ SCH ×2 (07:42→20:02)
[2019-03-05] MEDS: metoprolol succinate 25mg (24-HOUR) SR. Tablet PO SCH (07:43)
[2019-03-05] MEDS: gabapentin 300mg capsule PO SCH ×2 (07:43→18:42)
[2019-03-05] MEDS: citalopram 20mg tablet PO SCH (07:43)
[2019-03-05] MEDS: aspirin 325mg tablet, delayed-release (Ecotrin) PO SCH (07:43)
[2019-03-05] MEDS: furosemide 40mg/4ml inj IV SCH ×2 (07:43→20:02)
[2019-03-05] MEDS: fenofibrate 145mg tablet PO SCH (07:43)
[2019-03-05] MEDS: amLODIPine 5mg tablet PO SCH (07:44)
[2019-03-05] MEDS: allopurinol 100mg tablet PO SCH (07:44)
[2019-03-05] MEDS: docusate sod 100mg capsule PO SCH ×2 (07:46→20:00)
[2019-03-05] MEDS: K and/or MAG REPLACEMENT MC SCH (08:00)
[2019-03-05] MEDS: nitroGLYCERIN 0.2mg/hour patch TD SCH (08:00)
[2019-03-05] MEDS: budesonide 0.5mg/2ml UD nebule IH SCH ×2 (08:08→20:20)
[2019-03-05 11:11] VITALS: BP 105/68
[2019-03-05 15:15] VITALS: BP 99/77
[2019-03-05 19:00] VITALS: BP 110/71
[2019-03-05] MEDS: traMADol 50MG tablet PO PRN (20:34)
[2019-03-05 23:00] VITALS: BP 100/76
[2019-03-06] MEDS: gabapentin 300mg capsule PO SCH ×2 (00:17→07:31)
[2019-03-06 03:00] VITALS: BP 93/59
[2019-03-06 05:57] LABS: BASOPHILS % (AUTO) 0.7 % (0-1); EOSINOPHILS # (AUTO) 0.1 X10'3 (0-0.9); HEMATOCRIT 35.9 % (42.0-52.0); LYMPHOCYTES % (AUTO) 32.3 % (21-51); MEAN CORPUSCULAR HEMOGLOBIN 26.8 PG (27.0-31.0); MEAN CORPUSCULAR HGB CONC 33.4 g/dL (33.0-36.5); MEAN CORPUSCULAR VOLUME 80.5 FL (78-98); MEAN PLATELET VOLUME 7.8 FL (7.4-10.4); MONOCYTES # (AUTO) 0.7 X10'3 (0-0.9); MONOCYTES % (AUTO) 10.9 % (2-12); NEUTROPHILS # (AUTO) 3.4 X10'3 (1.8-7.7); NEUTROPHILS % (AUTO) 55.1 % (42-75); PLATELET COUNT 359 X10'3 (140-440); RED BLOOD COUNT 4.47 X10'6 (4.70-6.10); RED CELL DISTRIBUTION WIDTH 18.5 % (11.5-14.5); WHITE BLOOD COUNT 6.2 X10'3 (4.5-11.0)
[2019-03-06 06:00] VITALS: BP 117/75
[2019-03-06 06:10] LABS: ALANINE AMINOTRANSFERASE 117 U/L (12-78); ALBUMIN 2.6 G/DL (3.4-5.0); ALBUMIN/GLOBULIN RATIO 0.5 (1.1-1.5); ALKALINE PHOSPHATASE 70 IU/L (46-116); ANION GAP 6 (8-16); ASPARTATE AMINO TRANSFERASE 45 U/L (10-37); BILIRUBIN,TOTAL 0.5 MG/DL (0.1-1.0); BLOOD UREA NITROGEN 73 MG/DL (7-18); BUN/CREATININE RATIO 22.5 (5.4-32.0); CALCIUM 9.1 MG/DL (8.5-10.1); CHLORIDE 95 MMOL/L (99-107); CREATININE 3.25 MG/DL (0.60-1.10); GLUCOSE 79 MG/DL (70-104); MAGNESIUM 1.6 MG/DL (1.5-2.4); PHOSPHORUS 4.2 MG/DL (2.3-4.5); POTASSIUM 3.9 MMOL/L (3.5-5.1); SODIUM 134 MMOL/L (135-145); TOTAL CARBON DIOXIDE 33.4 MMOL/L (24-32); TOTAL PROTEIN 7.9 G/DL (6.4-8.2); eGFR 20 ML/MIN
--- NOTE | 2019-03-06 06:10 | NUR ---
Problems reprioritized. Patient report given, questions answered & plan of care reviewed with WOLFGANG Hernandez.
--- NOTE | 2019-03-06 06:15 | NUR ---
Patient in room PCU 3024. I have received report from Leti GOSS and had the opportunity to ask questions and assume patient care.
[2019-03-06] MEDS: heparin, porcine 5000 units/ml vial SQ SCH (07:30)
[2019-03-06] MEDS: furosemide 40mg/4ml inj IV SCH (07:30)
[2019-03-06] MEDS: metoprolol succinate 25mg (24-HOUR) SR. Tablet PO SCH (07:31)
[2019-03-06] MEDS: allopurinol 100mg tablet PO SCH (07:31)
[2019-03-06] MEDS: fenofibrate 145mg tablet PO SCH (07:31)
[2019-03-06] MEDS: aspirin 325mg tablet, delayed-release (Ecotrin) PO SCH (07:31)
[2019-03-06] MEDS: citalopram 20mg tablet PO SCH (07:32)
[2019-03-06] MEDS: amLODIPine 5mg tablet PO SCH (07:32)
[2019-03-06] MEDS: docusate sod 100mg capsule PO SCH (08:00)
[2019-03-06] MEDS: nitroGLYCERIN 0.2mg/hour patch TD SCH (08:00)
[2019-03-06] MEDS: K and/or MAG REPLACEMENT MC SCH (08:00)
[2019-03-06] MEDS: budesonide 0.5mg/2ml UD nebule IH SCH (09:41)
[2019-03-06] MEDS ORDERED: NITR0.4T51 SL (10:16)
[2019-03-06] MEDS ORDERED: ASPI-611 PO (10:16)
[2019-03-06] MEDS ORDERED: FURO-150 PO (10:16)
[2019-03-06] MEDS ORDERED: ATOR20TA66 PO (10:19)
[2019-03-06 11:00] VITALS: BP 106/62
--- NOTE | 2019-03-06 14:15 | NUR ---
Pt DCd home with caregiver. IV removed, canula intact. tele leads removed. New meds called into pharmacy at [facility], [address], [place]. Discharge paper work gone over with Pt and caregiver and allowed Pt to ask questions. Follow up appointments will be made by caregiver for, PCP, resident care aide and [facility] Carrier. Being it Tuesday 03/06, the [facility], which he goes to, is not open and appts could not be made. On previous discharge Pt was given life vest to wear. Upon readmission, less then a week later, Pt was not wearing life vest and it was still in the box it came in. On current discharge Pt refuses to wear Life vest. Life vest will be returned to [facility]. Pts belongings gathered and sent with Pt. Pt wheeled down to lobby in wheel chair by aid where Pt and caregiver left in private car.
== END 2019-03-06 14:45 | disposition home or self-care (01) | DRG 190 ==
LOC: ER 23:49 → PCU 3S 03-01 04:45 → CMPBEDREQ 03-01 19:46
PROVIDERS: ADMIT Internal Medicine; ATTEND Family Medicine
PROC: 5A09357 Assistance with Respiratory Ventilation, Less than 24 Consecutive Hours, Continuous Positive Airway Pressure (ICD-10-PCS; principal; 2019-03-01)
DX: I21.4 Non-ST elevation (NSTEMI) myocardial infarction (principal); I50.23 Acute on chronic systolic (congestive) heart failure; E11.22 Type 2 diabetes mellitus with diabetic chronic kidney disease; N18.4 Chronic kidney disease, stage 4 (severe); E11.42 Type 2 diabetes mellitus with diabetic polyneuropathy; N17.9 Acute kidney failure, unspecified; I07.1 Rheumatic tricuspid insufficiency; I13.0 Hypertensive heart and chronic kidney disease with heart failure and stage 1 through stage 4 chronic kidney disease, or unspecified chronic kidney disease; I42.9 Cardiomyopathy, unspecified; M10.9 Gout, unspecified; F11.90 Opioid use, unspecified, uncomplicated; N50.89 Other specified disorders of the male genital organs; F15.10 Other stimulant abuse, uncomplicated; F17.200 Nicotine dependence, unspecified, uncomplicated; J44.9 Chronic obstructive pulmonary disease, unspecified; E11.51 Type 2 diabetes mellitus with diabetic peripheral angiopathy without gangrene; E78.1 Pure hyperglyceridemia; E66.9 Obesity, unspecified; D64.9 Anemia, unspecified; K74.60 Unspecified cirrhosis of liver; Z71.51 Drug abuse counseling and surveillance of drug abuser; Z68.31 Body mass index [BMI] 31.0-31.9, adult; Z79.899 Other long term (current) drug therapy; Z79.82 Long term (current) use of aspirin; Z88.5 Allergy status to narcotic agent; Z91.19 Patient's noncompliance with other medical treatment and regimen; Z71.6 Tobacco abuse counseling; Z86.79 Personal history of other diseases of the circulatory system
CPT/HCPCS: 36415; 71045; 76775; 80053; 80305; 80320; 81001; 82570; 82948; 83036; 83605; 83735; 83880; 84100; 84155; 84156; 84165; 84166; 84300; 84484; 85025; 85610; 85730; 86870; 86885; 86900; 86901; 86905; 87070; 93005; 93308; 94640; 94660; 94760; 96365; 96375; 96376; 97110; 97116; 97161; 97530; 99291; G0378; J1644; J1940; J2060; J7626

== ENCOUNTER 2019-03-08 01:59 | Emergency (ER) | payer MEDICAID ==
[~2019-03-08] VITALS: Ht 182.9 cm; Wt 100.0 kg
[~2019-03-08 01:59] MED LIST changes: +AMLO5TAB16 PO; +ASPI-611 PO; +ATOR20TA66 PO; +BECL10.62 INH; -COL0.6T PO; +FURO-150 PO; -HYDR-3965 PO; +INSU100I39 SUBCUT; +METO-384 PO; +NITR0.4T51 SL
--- NOTE | 2019-03-08 02:26 | NUR ---
HE IS SITTING UP VISITING WITH ME. HE REALLY ENJOYED HIS AIR FLIGHT HERE. IT SAID "IT WAS FRICKEN AMAZING."
[2019-03-08 02:27] LABS: BASOPHILS % (AUTO) 0.4 % (0-1); EOSINOPHILS % (AUTO) 0.3 % (0-6); HEMATOCRIT 33.8 % (42.0-52.0); HEMOGLOBIN 10.6 g/dl (14.0-17.9); LYMPHOCYTES # (AUTO) 1.8 X10'3 (1.1-4.8); LYMPHOCYTES % (AUTO) 17.5 % (21-51); MEAN CORPUSCULAR HEMOGLOBIN 25.5 PG (27.0-31.0); MEAN CORPUSCULAR HGB CONC 31.4 g/dL (33.0-36.5); MEAN CORPUSCULAR VOLUME 81.2 FL (78-98); MEAN PLATELET VOLUME 7.9 FL (7.4-10.4); NEUTROPHILS # (AUTO) 7.4 X10'3 (1.8-7.7); NEUTROPHILS % (AUTO) 71.8 % (42-75); PLATELET COUNT 329 X10'3 (140-440); RED BLOOD COUNT 4.17 X10'6 (4.70-6.10); RED CELL DISTRIBUTION WIDTH 17.9 % (11.5-14.5); WHITE BLOOD COUNT 10.3 X10'3 (4.5-11.0)
[2019-03-08 02:37] LABS: PARTIAL THROMBOPLASTIN TIME 28 SECONDS (22-32)
[2019-03-08 02:39] LABS: ALANINE AMINOTRANSFERASE 72 U/L (12-78); ALBUMIN 2.5 G/DL (3.4-5.0); ALBUMIN/GLOBULIN RATIO 0.5 (1.1-1.5); ALKALINE PHOSPHATASE 68 IU/L (46-116); ANION GAP 8 (8-16); ASPARTATE AMINO TRANSFERASE 35 U/L (10-37); BILIRUBIN,TOTAL 0.4 MG/DL (0.1-1.0); BLOOD UREA NITROGEN 70 MG/DL (7-18); CALCIUM 8.8 MG/DL (8.5-10.1); CHLORIDE 99 MMOL/L (99-107); CREATININE 3.04 MG/DL (0.60-1.10); GLUCOSE 105 MG/DL (70-104); POTASSIUM 3.8 MMOL/L (3.5-5.1); SODIUM 134 MMOL/L (135-145); TOTAL CARBON DIOXIDE 26.8 MMOL/L (24-32); TOTAL PROTEIN 7.8 G/DL (6.4-8.2); eGFR 21 ML/MIN
[2019-03-08] MEDS ORDERED: traMADol 50MG tablet PO ONE (04:10)
--- NOTE | 2019-03-08 05:18 | NUR ---
HE WAS UP TO LALIT FOR A STOOL. LAB DRAWN. HE ATE A SANDWICHE.
[2019-03-08] MEDS ORDERED: TRAM50TA2 PO (06:11)
[2019-03-08 08:27] VITALS: BP 165/109
== END 2019-03-08 08:31 | disposition home or self-care (01) ==
LOC: ER 02:01
DX: R07.89 Other chest pain (principal); K02.9 Dental caries, unspecified; I10 Essential (primary) hypertension; I25.2 Old myocardial infarction; Z88.5 Allergy status to narcotic agent; Z79.82 Long term (current) use of aspirin; Z79.899 Other long term (current) drug therapy
CPT/HCPCS: 36415; 71045; 80053; 84484; 85025; 85610; 85730; 93005; 99284

== ENCOUNTER 2019-07-18 23:07 | Inpatient (IN) | payer MEDICAID ==
[~2019-07-18] VITALS: Ht 180.3 cm; Wt 103.5 kg
[~2019-07-18 23:07] MED LIST changes: -ASPI-611 PO; -INSU100I39 SUBCUT
[2019-07-18] MEDS ORDERED: fentaNYL/PF 50MCG/1 ML 2ML syringe IV ONE (23:20)
[2019-07-18 23:59] LABS: BASOPHILS % (AUTO) 0.1 % (0-1); EOSINOPHILS % (AUTO) 0 % (0-6); HEMATOCRIT 34.7 % (42.0-52.0); HEMOGLOBIN 11.7 g/dl (14.0-17.9); LYMPHOCYTES # (AUTO) 0.8 X10'3 (1.1-4.8); LYMPHOCYTES % (AUTO) 4.3 % (21-51); MEAN CORPUSCULAR HEMOGLOBIN 30.8 PG (27.0-31.0); MEAN CORPUSCULAR HGB CONC 33.7 g/dL (33.0-36.5); MEAN CORPUSCULAR VOLUME 91.2 FL (78-98); MEAN PLATELET VOLUME 8.6 FL (7.4-10.4); MONOCYTES # (AUTO) 1.1 X10'3 (0-0.9); MONOCYTES % (AUTO) 5.9 % (2-12); NEUTROPHILS # (AUTO) 16.7 X10'3 (1.8-7.7); NEUTROPHILS % (AUTO) 89.7 % (42-75); PLATELET COUNT 189 X10'3 (140-440); RED BLOOD COUNT 3.81 X10'6 (4.70-6.10); RED CELL DISTRIBUTION WIDTH 17.5 % (11.5-14.5); WHITE BLOOD COUNT 18.6 X10'3 (4.5-11.0)
[2019-07-19] MEDS ORDERED: mag hydrox/Alum hydrox/simeth 30ml oral suspension PO PRN (00:15)
[2019-07-19] MEDS ORDERED: ondansetron/PF 4mg/2ml inj IV PRN (00:15)
[2019-07-19] MEDS ORDERED: magnesium hydroxide 30ml (MOM) UD suspension PO PRN (00:15)
[2019-07-19] MEDS ORDERED: HYDROcodone/acetaminophen 5mg/325mg tablet PO PRN (00:15)
[2019-07-19] MEDS ORDERED: acetaminophen 325mg tablet PO PRN ×2 (00:15)
[2019-07-19 00:27] LABS: ALANINE AMINOTRANSFERASE 72 U/L (12-78); ALBUMIN/GLOBULIN RATIO 0.4 (1.1-1.5); ALKALINE PHOSPHATASE 110 IU/L (46-116); ANION GAP 13 (8-16); ASPARTATE AMINO TRANSFERASE 90 U/L (10-37); BILIRUBIN,TOTAL 0.6 MG/DL (0.1-1.0); BLOOD UREA NITROGEN 86 MG/DL (7-18); BUN/CREATININE RATIO 16.4 (5.4-32.0); CHLORIDE 96 MMOL/L (99-107); CREATININE 5.25 MG/DL (0.60-1.10); GLUCOSE 94 MG/DL (70-104); SODIUM 130 MMOL/L (135-145); TOTAL CARBON DIOXIDE 21.5 MMOL/L (24-32); TOTAL PROTEIN 7.7 G/DL (6.4-8.2); eGFR 11 ML/MIN
[2019-07-19] MEDS ORDERED: TRAM50TA2 PO (02:18)
[2019-07-19 02:20] VITALS: BP 125/77
[2019-07-19] MEDS: normal saline 1000ml 1,000 ML IV SCH ×3 (03:31→18:15)
[2019-07-19 06:00] VITALS: BP 99/61
[2019-07-19 07:12] LABS: HEMOGLOBIN A1C 5.6 % (4.5-6.2)
[2019-07-19] MEDS: heparin, porcine 5000 units/ml vial SQ SCH ×2 (08:38→20:00)
[2019-07-19] MEDS ORDERED: gabapentin 300mg capsule PO PRN (09:00)
[2019-07-19] MEDS ORDERED: normal saline 1000ml 1,000 ML IV ONE (09:05)
[2019-07-19] MEDS: CefTRIAXone 2gm/D5W 50ml 50 ML IV SCH (09:08)
[2019-07-19 09:30] VITALS: BP 91/55
[2019-07-19] MEDS: citalopram 20mg tablet PO SCH (10:00)
[2019-07-19] MEDS: metoprolol succinate 25mg (24-HOUR) SR. Tablet PO SCH (10:00)
[2019-07-19 10:16] LABS: CREATINE KINASE 517 U/L (39-308)
--- NOTE | 2019-07-19 12:14 | NUR ---
Provider notified by GOSS (Teresa). Addendum: 07/19/19 at 1215 by Corona RODRIGUEZ Amended: Links added.
--- NOTE | 2019-07-19 12:16 | NUR ---
Student Medication Administration: For this medication-pass time frame 4145-0132, all medications were reviewed, administered and documented per hospital policy by Corona White. Student documentation: I have reviewed and agree with all interventions, assessments performed and documented by Corona White.
--- NOTE | 2019-07-19 12:23 | NUR ---
Problems reprioritized. Patient report given, questions answered & plan of care reviewed with Evelyne.
[2019-07-19 14:17] LABS: CLARITY,URINE TURBID (Clear); COLOR,URINE YELLOW (Yellow); GLUCOSE, URINE NEGATIVE (Neg); KETONES,URINE NEGATIVE (Neg); LEUKOCYTE ESTERASE ,URINE NEGATIVE (Neg); NITRITES, URINE NEGATIVE (Neg); OCCULT BLOOD,URINE LARGE (Neg); PROTEIN,URINE >=300 mg/dl (Neg)
[2019-07-19 14:26] LABS: UA COLLECTION TYPE STRAIGHT CATH; URINE AMPHETAMINE SCREEN POSITIVE (Neg); URINE BARBITUATE SCREEN NEGATIVE (Neg); URINE BENZODIAZEPINES SCREEN NEGATIVE (Neg); URINE CANNABINOID SCREEN NEGATIVE (Neg); URINE COCAINE SCREEN NEGATIVE (Neg); URINE METHADONE SCREEN NEGATIVE (Neg); URINE OPIATE SCREEN NEGATIVE (Neg); URINE PHENCYCLIDINE SCREEN NEGATIVE (Neg)
[2019-07-19 14:35] LABS: BACTERIA,URINE FEW /HPF (Neg); SQUAMOUS EPITHELIAL CELL,UR FEW /LPF (FEW)
[2019-07-19 14:37] LABS: WBC,URINE 0-4 /HPF (0-4)
[2019-07-19 14:38] LABS: AMORPHOUS URATES 3+
[2019-07-19 14:40] LABS: WAXY CASTS,URINE 0-3 /LPF (NEGATIVE)
--- NOTE | 2019-07-19 16:35 | NUR ---
Dr Camacho notified ultra sound technician unable to complete US on LE secondary to pain.
[2019-07-19] MEDS: gabapentin 300mg capsule PO PRN (17:51)
[2019-07-19 18:00] VITALS: BP 116/73
--- NOTE | 2019-07-19 18:17 | NUR ---
WAS UNABLE TO GET A PULSE THROUGH DOPPLER Addendum: 07/19/19 at 1818 by Neha Alejandro RN Amended: Links added.
--- NOTE | 2019-07-19 18:25 | NUR ---
Received report from WOLFGANG Stubbs. Assumed patient care.
[2019-07-19] MEDS ORDERED: morphine 2 MG/ML inj. syringe IV PRN (19:05)
[2019-07-19] MEDS ORDERED: heparin 10,000 units/1 ML INJ IV ONE (19:30)
[2019-07-19] MEDS: oxyCODONE/APAP 10/325mg tablet PO PRN (19:36)
[2019-07-19] MEDS ORDERED: normal saline 1000ml 1,000 ML IV SCH (19:42)
[2019-07-19 21:12] LABS: PARTIAL THROMBOPLASTIN TIME 27 SECONDS (22-32)
[2019-07-19 22:00] VITALS: BP 113/76
[2019-07-19] MEDS: heparin 25,000 UNIT/250ml bag 250 ML IV SCH (22:01)
[2019-07-19] MEDS: lactobacillus rhamnosus 10,000 MMU CELLS/CAPSULE PO SCH (22:44)
[2019-07-20] VITALS (12 sets, daily range): BP systolic 96–146; BP diastolic 64–81
[2019-07-20] MEDS: normal saline 1000ml 1,000 ML IV SCH ×2 (01:13→21:19)
[2019-07-20 05:21] LABS: BASOPHILS % (AUTO) 0 % (0-1); EOSINOPHILS % (AUTO) 0.1 % (0-6); HEMATOCRIT 27.9 % (42.0-52.0); HEMOGLOBIN 9.4 g/dl (14.0-17.9); LYMPHOCYTES # (AUTO) 0.8 X10'3 (1.1-4.8); LYMPHOCYTES % (AUTO) 6.3 % (21-51); MEAN CORPUSCULAR HEMOGLOBIN 30.8 PG (27.0-31.0); MEAN CORPUSCULAR HGB CONC 33.8 g/dL (33.0-36.5); MEAN CORPUSCULAR VOLUME 91.2 FL (78-98); MEAN PLATELET VOLUME 9.1 FL (7.4-10.4); NEUTROPHILS # (AUTO) 10.4 X10'3 (1.8-7.7); NEUTROPHILS % (AUTO) 85.6 % (42-75); PLATELET COUNT 166 X10'3 (140-440); RED BLOOD COUNT 3.06 X10'6 (4.70-6.10); RED CELL DISTRIBUTION WIDTH 17.7 % (11.5-14.5); WHITE BLOOD COUNT 12.1 X10'3 (4.5-11.0)
[2019-07-20 05:41] LABS: ALANINE AMINOTRANSFERASE 52 U/L (12-78); ALBUMIN 1.6 G/DL (3.4-5.0); ALBUMIN/GLOBULIN RATIO 0.3 (1.1-1.5); ALKALINE PHOSPHATASE 110 IU/L (46-116); ANION GAP 19 (8-16); ASPARTATE AMINO TRANSFERASE 55 U/L (10-37); BILIRUBIN,TOTAL 0.5 MG/DL (0.1-1.0); BLOOD UREA NITROGEN 97 MG/DL (7-18); BUN/CREATININE RATIO 15.1 (5.4-32.0); CALCIUM 7.8 MG/DL (8.5-10.1); CHLORIDE 97 MMOL/L (99-107); CHOL/HDL RATIO 7.1 (0.00-4.99); CHOLESTEROL 92 MG/DL (0-200); CREATININE 6.41 MG/DL (0.60-1.10); GLUCOSE 99 MG/DL (70-104); HDL CHOLESTEROL 13 MG/DL (35-60); LDL CHOLESTEROL 41 MG/DL (50-100); MAGNESIUM 1.6 MG/DL (1.5-2.4); PHOSPHORUS 7.1 MG/DL (2.3-4.5); POTASSIUM 3.9 MMOL/L (3.5-5.1); SODIUM 133 MMOL/L (135-145); TOTAL CARBON DIOXIDE 17.1 MMOL/L (24-32); TOTAL PROTEIN 6.4 G/DL (6.4-8.2); TRIGLYCERIDES 177 MG/DL (20-135); eGFR 9 ML/MIN
--- NOTE | 2019-07-20 06:15 | NUR ---
Patient in room ORTHO 4012. I have received report from and had the opportunity to ask questions and assume patient care WOLFGANG Thrasher.
--- NOTE | 2019-07-20 06:42 | NUR ---
Patient report given, questions answered plan of care reviewed with WOLFGANG Bright.
[2019-07-20] MEDS: heparin 10,000 units/1 ML INJ IV PRN ×2 (06:54→15:04)
[2019-07-20] MEDS: heparin, porcine 5000 units/ml vial SQ SCH ×2 (08:00→20:00)
--- NOTE | 2019-07-20 08:09 | NUR ---
Paged Dr Camacho: PAGER ID: [phone] MESSAGE: [phone] Vinicius Paez: Pt refused arterial probe, vascular ultrasound 07/19 r/t pain. PTT 34 started hep protocol. NPO at this time for Co2 angiogram Kaila [phone]
[2019-07-20] MEDS: CefTRIAXone 2gm/D5W 50ml 50 ML IV SCH (09:34)
--- NOTE | 2019-07-20 09:55 | NUR ---
Dr Martinez in room w/pt explaining procedure, NPO status. Order to stop Morphine, add PRN Dilaudid .5mg Q1H. Pt agreed to procedure & medication change. OK to administer medications w/small amount of water at this time. Dr aware of hep drip, non administer sub Q heparin.
[2019-07-20] MEDS: amLODIPine 5mg tablet PO SCH (10:13)
[2019-07-20] MEDS: fenofibrate 145mg tablet PO SCH (10:13)
[2019-07-20] MEDS: HYDROmorphone inj. 0.5 MG/0.5 ML DISP.SYRIN IV PRN (10:13)
[2019-07-20] MEDS: citalopram 20mg tablet PO SCH (10:13)
[2019-07-20] MEDS: lactobacillus rhamnosus 10,000 MMU CELLS/CAPSULE PO SCH ×2 (10:14→20:00)
[2019-07-20] MEDS: metoprolol succinate 25mg (24-HOUR) SR. Tablet PO SCH (10:14)
[2019-07-20] MEDS: allopurinol 100mg tablet PO SCH (10:14)
[2019-07-20 14:33] LABS: PARTIAL THROMBOPLASTIN TIME 30 SECONDS (22-32)
[2019-07-20] MEDS: heparin 25,000 UNIT/250ml bag 250 ML IV SCH ×2 (15:09→21:21)
[2019-07-20] MEDS ORDERED: sodium bicarbonate (8.4%) inj. 150 MEQ in dextrose 5%-water 1,000 ML IV SCH (15:10)
[2019-07-20] MEDS: sodium bicarbonate (8.4%) inj. 75 MEQ in dextrose 5% water 500ml 500 ML IV SCH ×3 (15:45→23:51)
[2019-07-20] MEDS ORDERED: sodium bicarbonate (8.4%) inj. 75 MEQ in dextrose 5% water 500ml 1,075 ML IV SCH (15:45)
[2019-07-20] MEDS ORDERED: heparin 1,000 UNITS/NS 500ml 500 ML ICATH ONE (17:05)
[2019-07-20] MEDS ORDERED: LIDOcaine 1% (10mg/ml) 2ml vial SQ ONE (17:05)
[2019-07-20] MEDS ORDERED: midazolam 2 mg/2 ml injection IV PRN (17:05)
[2019-07-20] MEDS ORDERED: fentaNYL/PF 50MCG/1 ML 2ML syringe IV PRN (17:05)
[2019-07-20] MEDS ORDERED: midazolam 2 mg/2 ml injection ONE (17:11)
[2019-07-20] MEDS ORDERED: fentaNYL/PF 50MCG/1 ML 2ML syringe ONE (17:11)
--- NOTE | 2019-07-20 17:20 | NUR ---
Problems reprioritized. Patient report given, questions answered & plan of care reviewed with Aaron in ICU. pt transferred to Angio. personal belongings brought down to ICU where pt will recover after procedure.
[2019-07-20] MEDS ORDERED: iohexol 300mg/ml 100ml inj. ONE (17:34)
[2019-07-20] MEDS ORDERED: heparin 1,000 UNITS/NS 500ml 500 ML ONE ×2 (17:34→18:05)
--- NOTE | 2019-07-20 17:35 | NUR ---
Patient in angio. I have received report from Kaila on ortho/ neuro and had the opportunity to ask questions. Pts personal belongings delivered to room 2039.
[2019-07-20] MEDS: tPA-cathflo 2mg/2ml IV flush 4 MG in normal saline 100ml IV soln 100 ML ICATH SCH ×2 (17:49→23:50)
[2019-07-20] MEDS ORDERED: heparin 1,000 UNITS/NS 500ml 500 ML IV SCH (17:49)
--- NOTE | 2019-07-20 18:23 | NUR ---
Problems reprioritized. Patient report given, questions answered & plan of care reviewed with Katey.
[2019-07-20 22:50] LABS: HEMOGLOBIN 10.8 g/dl (14.0-17.9); MEAN CORPUSCULAR HEMOGLOBIN 30.4 PG (27.0-31.0); MEAN CORPUSCULAR HGB CONC 32.7 g/dL (33.0-36.5); MEAN CORPUSCULAR VOLUME 93.1 FL (78-98); MEAN PLATELET VOLUME 8.7 FL (7.4-10.4); PLATELET COUNT 254 X10'3 (140-440); RED BLOOD COUNT 3.54 X10'6 (4.70-6.10); RED CELL DISTRIBUTION WIDTH 17.8 % (11.5-14.5)
--- NOTE | 2019-07-20 23:00 | NUR ---
Received orders from COLETTE Maynard to D/C NS and restart Bicarb.
[2019-07-20 23:02] LABS: PARTIAL THROMBOPLASTIN TIME 28 SECONDS (22-32)
[2019-07-21] VITALS (27 sets, daily range): BP systolic 93–124; BP diastolic 53–71
[2019-07-21] MEDS: HYDROmorphone inj. 0.5 MG/0.5 ML DISP.SYRIN IV PRN ×4 (00:29→18:59)
[2019-07-21] MEDS: sodium bicarbonate (8.4%) inj. 75 MEQ in dextrose 5% water 500ml 500 ML IV SCH ×2 (03:41→11:58)
--- NOTE | 2019-07-21 04:00 | NUR ---
Pt very noncompliant refusing most hands on nursing care; including turns, bath, and optifoam on coccyx.
[2019-07-21 05:27] LABS: BASOPHILS % (AUTO) 0.1 % (0-1); EOSINOPHILS % (AUTO) 0 % (0-6); HEMOGLOBIN 10.5 g/dl (14.0-17.9); LYMPHOCYTES % (AUTO) 5.2 % (21-51); MEAN CORPUSCULAR HEMOGLOBIN 30.6 PG (27.0-31.0); MEAN CORPUSCULAR HGB CONC 32.8 g/dL (33.0-36.5); MEAN CORPUSCULAR VOLUME 93.5 FL (78-98); MEAN PLATELET VOLUME 8.7 FL (7.4-10.4); MONOCYTES # (AUTO) 1.1 X10'3 (0-0.9); MONOCYTES % (AUTO) 5.9 % (2-12); NEUTROPHILS # (AUTO) 16.3 X10'3 (1.8-7.7); NEUTROPHILS % (AUTO) 88.8 % (42-75); PLATELET COUNT 275 X10'3 (140-440); RED BLOOD COUNT 3.43 X10'6 (4.70-6.10); RED CELL DISTRIBUTION WIDTH 17.8 % (11.5-14.5); WHITE BLOOD COUNT 18.4 X10'3 (4.5-11.0)
[2019-07-21 05:31] LABS: PARTIAL THROMBOPLASTIN TIME 30 SECONDS (22-32)
[2019-07-21 05:34] LABS: ALANINE AMINOTRANSFERASE 46 U/L (12-78); ALBUMIN 1.8 G/DL (3.4-5.0); ALBUMIN/GLOBULIN RATIO 0.3 (1.1-1.5); ALKALINE PHOSPHATASE 127 IU/L (46-116); ANION GAP 21 (8-16); ASPARTATE AMINO TRANSFERASE 49 U/L (10-37); BILIRUBIN,TOTAL 0.5 MG/DL (0.1-1.0); BLOOD UREA NITROGEN 113 MG/DL (7-18); BUN/CREATININE RATIO 15.4 (5.4-32.0); CALCIUM 8.9 MG/DL (8.5-10.1); CHLORIDE 97 MMOL/L (99-107); CREATININE 7.34 MG/DL (0.60-1.10); GLUCOSE 96 MG/DL (70-104); POTASSIUM 4.9 MMOL/L (3.5-5.1); SODIUM 135 MMOL/L (135-145); TOTAL CARBON DIOXIDE 17.5 MMOL/L (24-32); TOTAL PROTEIN 7.2 G/DL (6.4-8.2); eGFR 8 ML/MIN
[2019-07-21 05:40] LABS: PHOSPHORUS 12.4 MG/DL (2.3-4.5)
[2019-07-21] MEDS: normal saline 1000ml 1,000 ML IV SCH ×2 (05:55→05:58)
--- NOTE | 2019-07-21 06:41 | NUR ---
Problems reprioritized. Patient report given, questions answered & plan of care reviewed with WOLFGANG Landeros.
[2019-07-21] MEDS: CefTRIAXone 2gm/D5W 50ml 50 ML IV SCH (07:50)
[2019-07-21] MEDS: lactobacillus rhamnosus 10,000 MMU CELLS/CAPSULE PO SCH ×2 (08:00→20:00)
[2019-07-21] MEDS: amLODIPine 5mg tablet PO SCH (08:00)
[2019-07-21] MEDS: fenofibrate 145mg tablet PO SCH (08:00)
[2019-07-21] MEDS: citalopram 20mg tablet PO SCH (08:00)
[2019-07-21] MEDS: metoprolol succinate 25mg (24-HOUR) SR. Tablet PO SCH (08:00)
[2019-07-21] MEDS: allopurinol 100mg tablet PO SCH (08:00)
[2019-07-21] MEDS: heparin, porcine 5000 units/ml vial SQ SCH ×2 (08:00→20:00)
[2019-07-21] MEDS ORDERED: heparin 1,000 units/ml 10ml inj HE ONE ×2 (09:35)
[2019-07-21] MEDS ORDERED: epoetin 20,000 units/ml inj IV ONE (09:35)
[2019-07-21] MEDS ORDERED: albumin (human) 25% 100ml IV 100 ML IV PRN (09:35)
[2019-07-21] MEDS: tPA-cathflo 2mg/2ml IV flush 4 MG in normal saline 100ml IV soln 100 ML ICATH SCH ×2 (09:56→17:49)
[2019-07-21] MEDS ORDERED: iohexol 300mg/ml 100ml inj. ONE (10:21)
[2019-07-21 10:42] LABS: HEMOGLOBIN 10.7 g/dl (14.0-17.9); MEAN CORPUSCULAR HEMOGLOBIN 30.6 PG (27.0-31.0); MEAN CORPUSCULAR HGB CONC 33.4 g/dL (33.0-36.5); MEAN CORPUSCULAR VOLUME 91.7 FL (78-98); MEAN PLATELET VOLUME 8.1 FL (7.4-10.4); PLATELET COUNT 285 X10'3 (140-440); RED BLOOD COUNT 3.49 X10'6 (4.70-6.10); RED CELL DISTRIBUTION WIDTH 17.8 % (11.5-14.5); WHITE BLOOD COUNT 15.7 X10'3 (4.5-11.0)
[2019-07-21] MEDS ORDERED: fentaNYL/PF 50MCG/1 ML 2ML syringe ONE (10:47)
[2019-07-21] MEDS ORDERED: midazolam 2 mg/2 ml injection ONE (10:47)
[2019-07-21] MEDS ORDERED: LIDOcaine 1%/PF 5ML 10 MG/ML VIAL ONE (11:04)
[2019-07-21] MEDS ORDERED: heparin 1,000unit/ml 10ml vial 10 ML ONE (11:04)
[2019-07-21 11:25] LABS: PARTIAL THROMBOPLASTIN TIME 29 SECONDS (22-32)
--- NOTE | 2019-07-21 15:35 | NUR ---
Initial assessment: Pt is admitted to the unit with dx of foot pain. According to physical hx, patient has edema in his legs. Pt hx AAA and bypass. Has had problems with recurrent wounds on his left leg. Legs are red and swollen Has some chronic renal insufficiency per MD. 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 Pt is going on dialysis today and maybe permanently per MD. Pt is currently on TPA. Will continue to monitor. Recommendations: 1. Remains NPO until medically able to resume po diet; target diet to heart healthy/renal diet/carb controlled. 2. Bowel care routine 3. Weekly wts. 4. Monitor for additional protein needs pending po Addendum: 07/21/19 at [address] Amended: Links added.
[2019-07-21 17:16] LABS: HEMATOCRIT 31.1 % (42.0-52.0); HEMOGLOBIN 10.4 g/dl (14.0-17.9); MEAN CORPUSCULAR HGB CONC 33.5 g/dL (33.0-36.5); MEAN CORPUSCULAR VOLUME 92.7 FL (78-98); MEAN PLATELET VOLUME 8.3 FL (7.4-10.4); PARTIAL THROMBOPLASTIN TIME 29 SECONDS (22-32); PLATELET COUNT 282 X10'3 (140-440); RED BLOOD COUNT 3.36 X10'6 (4.70-6.10); RED CELL DISTRIBUTION WIDTH 17.9 % (11.5-14.5); WHITE BLOOD COUNT 10.9 X10'3 (4.5-11.0)
[2019-07-21] MEDS ORDERED: NORepinephrine 8 MG in NS 250ml IV soln IV SCH (18:05)
[2019-07-21] MEDS ORDERED: ceFAZolin 1000mg inj ONE (19:29)
[2019-07-21] MEDS ORDERED: heparin 10,000 units/1 ML INJ ONE (19:29)
[2019-07-21] MEDS ORDERED: MIDAZolam 5mg/5ml vial ONE (20:06)
[2019-07-21] MEDS ORDERED: fentaNYL /PF 50mcg/ml 5ml ampule ONE (20:07)
[2019-07-21] MEDS ORDERED: ringers solution, lacted 1,000 ML IV SCH (20:18)
[2019-07-21] MEDS ORDERED: hydrALAZINE 20mg/ml inj. IV PRN (20:20)
[2019-07-21] MEDS ORDERED: ondansetron/PF 4mg/2ml inj IV PRN (20:20)
[2019-07-21] MEDS ORDERED: morphine 4 MG/ML inj SYRINge IV PRN ×2 (20:20)
[2019-07-21] MEDS ORDERED: labetalol 20mg/4ml (5mg/ml) syringe IV PRN (20:20)
[2019-07-21] MEDS ORDERED: FENTANYL-0.9 % NACL/PF 100 ML IV PRN (20:20)
[2019-07-21] MEDS ORDERED: fentaNYL/PF 50MCG/1 ML 2ML syringe IV PRN ×2 (20:20)
[2019-07-21] MEDS ORDERED: sevoflurane 250ml liquid IH ONE (20:36)
[2019-07-21] MEDS ORDERED: dexamethasone sod phosphate 10mg/ml inj ONE (20:36)
--- NOTE | 2019-07-21 20:40 | NUR ---
Patient to OR
[2019-07-21] MEDS ORDERED: midazolam 100mg in NS 100ml 100 ML IV SCH (21:00)
[2019-07-21] MEDS ORDERED: rocuronium 10mg/ml inj IV ONE (21:05)
[2019-07-21] MEDS ORDERED: etomidate 2mg/ml inj. ONE (21:05)
[2019-07-21] MEDS ORDERED: albumin (Human) 5% 250ml 250 ML IV ONE ×2 (21:05→21:06)
[2019-07-21] MEDS ORDERED: ondansetron/PF 4mg/2ml inj ONE (21:09)
[2019-07-21 21:25] LABS: ABG BASE EXCESS -6.6 mmol/L (-2.0-3.0); ABG HCO3 21.4 mmol/L (22.0-26.0); ABG OXYGEN SATURATION 97.9 % (95-98); ABG PCO2 (T) 52.7 mmHg (35.0-45.0); ABG PH (T) 7.221 (7.350-7.450); ABG PO2 (T) 116.9 mmHg (83-108); FCOHb 0.3 % (0.5-1.5); FMetHb 0.1 % (0.3-1.12); FO2Hb 97.5 % (94-100); TOTAL HEMOGLOBIN 10.5 G/dl (14.0-17.9)
[2019-07-21] MEDS ORDERED: iohexol 300 MG/1 ML 50ml polymer ONE (23:26)
[2019-07-22] VITALS (26 sets, daily range): BP systolic 101–157; BP diastolic 50–72
[2019-07-22] MEDS ORDERED: MIDAZolam 5mg/5ml vial ONE (00:21)
[2019-07-22] MEDS ORDERED: fentaNYL /PF 50mcg/ml 5ml ampule ONE (00:22)
[2019-07-22 01:41] LABS: PARTIAL THROMBOPLASTIN TIME 48 SECONDS (22-32)
[2019-07-22] MEDS: tPA-cathflo 2mg/2ml IV flush 4 MG in normal saline 100ml IV soln 100 ML ICATH SCH ×2 (01:49→09:49)
[2019-07-22 01:51] LABS: ABG BASE EXCESS -6.5 mmol/L (-2.0-3.0); ABG HCO3 19.6 mmol/L (22.0-26.0); ABG OXYGEN SATURATION 94.7 % (95-98); ABG PCO2 (T) 41.9 mmHg (35.0-45.0); ABG PO2 (T) 83.1 mmHg (83-108); FCOHb 0.3 % (0.5-1.5); FMetHb 0.1 % (0.3-1.12); FO2Hb 94.3 % (94-100); MINUTE VOLUME 10 L/min; PATIENT TEMPERATURE 37.1; PEEP 5 cm H2O; RESPIRATORY RATE 14 b/min; RESPIRATORY RATE (OBSERVED) 17 b/min; TIDAL VOLUME 650 mL
[2019-07-22] MEDS: normal saline 1000ml 1,000 ML IV SCH ×2 (01:55→21:55)
[2019-07-22] MEDS: sodium bicarbonate (8.4%) inj. 75 MEQ in dextrose 5% water 500ml 500 ML IV SCH ×2 (02:15→03:15)
[2019-07-22 02:52] LABS: BASOPHILS % (AUTO) 0.1 % (0-1); EOSINOPHILS % (AUTO) 0 % (0-6); HEMATOCRIT 26.9 % (42.0-52.0); HEMOGLOBIN 9.2 g/dl (14.0-17.9); LYMPHOCYTES # (AUTO) 0.2 X10'3 (1.1-4.8); LYMPHOCYTES % (AUTO) 1.7 % (21-51); MEAN CORPUSCULAR HEMOGLOBIN 30.8 PG (27.0-31.0); MEAN CORPUSCULAR VOLUME 90.7 FL (78-98); MEAN PLATELET VOLUME 8.2 FL (7.4-10.4); MONOCYTES # (AUTO) 0.2 X10'3 (0-0.9); MONOCYTES % (AUTO) 1.2 % (2-12); NEUTROPHILS # (AUTO) 12.5 X10'3 (1.8-7.7); PLATELET COUNT 246 X10'3 (140-440); RED BLOOD COUNT 2.97 X10'6 (4.70-6.10); WHITE BLOOD COUNT 12.9 X10'3 (4.5-11.0)
[2019-07-22 03:09] LABS: ALANINE AMINOTRANSFERASE 34 U/L (12-78); ALBUMIN/GLOBULIN RATIO 0.5 (1.1-1.5); ALKALINE PHOSPHATASE 96 IU/L (46-116); ANION GAP 19 (8-16); ASPARTATE AMINO TRANSFERASE 27 U/L (10-37); BILIRUBIN,TOTAL 0.6 MG/DL (0.1-1.0); BLOOD UREA NITROGEN 81 MG/DL (7-18); BUN/CREATININE RATIO 14.4 (5.4-32.0); CALCIUM 7.7 MG/DL (8.5-10.1); CHLORIDE 100 MMOL/L (99-107); CREATININE 5.62 MG/DL (0.60-1.10); GLUCOSE 121 MG/DL (70-104); MAGNESIUM 1.8 MG/DL (1.5-2.4); PHOSPHORUS 8.2 MG/DL (2.3-4.5); POTASSIUM 3.8 MMOL/L (3.5-5.1); SODIUM 140 MMOL/L (135-145); TOTAL CARBON DIOXIDE 21.3 MMOL/L (24-32); TOTAL PROTEIN 6.4 G/DL (6.4-8.2); eGFR 10 ML/MIN
[2019-07-22] MEDS: ipratropium/albuterol 3ml nebule NEB SCH ×6 (03:34→23:19)
[2019-07-22] MEDS: allopurinol 100mg tablet PO SCH (07:44)
[2019-07-22] MEDS: citalopram 20mg tablet PO SCH (07:44)
[2019-07-22] MEDS: fenofibrate 145mg tablet PO SCH (07:44)
[2019-07-22] MEDS: amLODIPine 5mg tablet PO SCH (07:44)
[2019-07-22] MEDS: lactobacillus rhamnosus 10,000 MMU CELLS/CAPSULE PO SCH ×2 (07:44→20:00)
[2019-07-22] MEDS: CefTRIAXone 2gm/D5W 50ml 50 ML IV SCH (07:45)
[2019-07-22] MEDS: clopidogrel 75mg tablet PO SCH (07:45)
[2019-07-22] MEDS: metoprolol succinate 25mg (24-HOUR) SR. Tablet PO SCH (07:46)
[2019-07-22] MEDS: heparin, porcine 5000 units/ml vial SQ SCH ×2 (07:47→21:48)
[2019-07-22] MEDS ORDERED: VANCOMYCIN LEVEL IV ONE (08:30)
[2019-07-22] MEDS ORDERED: heparin 1,000unit/ml 10ml vial 10 ML IV ONE (08:48)
[2019-07-22] MEDS ORDERED: albumin (human) 25% 100ml IV 100 ML IV PRN (08:50)
[2019-07-22] MEDS ORDERED: epoetin 20,000 units/ml inj IV ONE (08:50)
[2019-07-22] MEDS ORDERED: heparin 1,000 units/ml 10ml inj IV ONE (08:50)
[2019-07-22] MEDS ORDERED: heparin 1,000 units/ml 10ml inj HE ONE ×2 (08:55)
[2019-07-22 14:16] LABS: ABG BASE EXCESS -0.9 mmol/L (-2.0-3.0); ABG HCO3 23.7 mmol/L (22.0-26.0); ABG OXYGEN SATURATION 95.3 % (95-98); ABG PCO2 (T) 39.4 mmHg (35.0-45.0); ABG PH (T) 7.399 (7.350-7.450); FCOHb 0.3 % (0.5-1.5); MINUTE VOLUME 12 L/min; PATIENT TEMPERATURE 37.3; PEEP 5 cm H2O; RESPIRATORY RATE (OBSERVED) 14 b/min; TOTAL HEMOGLOBIN 10.2 G/dl (14.0-17.9)
--- NOTE | 2019-07-22 16:16 | NUR ---
F/U: Pt is sedated and currently on ventilator. TDC was placed yesterday. Per MD will wean off the ventilator after dialysis for the pt, and if did not wean off successfully, will initiate TF. Pt continues to be NPO. TF recs of Vital High Protein at goal rate of 90ml/hr. Noted elevated Phos level, will request Phos binder when TF initiates per MD. Will continue to monitor. Recommendations: 1. Remains NPO until medically able to resume po diet; If TF, recs per OGTF using Vital High Protein at goal rate 90ml/hr; to provide 2160ml fluid, 2160kcal,1814ml free water, and 189g protein.Additional water flushes per MD due to dialysis. Phos binder per MD due to elevated Phos level once TF starts. 2. Bowel care routine 3. Wts with HD 4. Upon extubation advance diet per MD to rec. renal/heart healthy/carb controlled diet Addendum: 07/22/19 at [address] Amended: Links added. Addendum: 07/22/19 at [address] RD Approves
--- NOTE | 2019-07-22 18:30 | NUR ---
Patient in room ICU 2039. I have received report from Leti GOSS and had the opportunity to ask questions and assume patient care.
[2019-07-22] MEDS: heparin 25,000 UNIT/250ml bag 250 ML IV SCH (19:26)
[2019-07-23] VITALS (19 sets, daily range): BP systolic 123–162; BP diastolic 63–86
[2019-07-23] MEDS: HYDROmorphone inj. 0.5 MG/0.5 ML DISP.SYRIN IV PRN ×3 (00:40→09:26)
[2019-07-23] MEDS: ipratropium/albuterol 3ml nebule NEB SCH ×6 (03:19→23:38)
[2019-07-23 03:47] LABS: BASOPHILS % (AUTO) 0.2 % (0-1); EOSINOPHILS % (AUTO) 0 % (0-6); HEMATOCRIT 26.2 % (42.0-52.0); HEMOGLOBIN 8.9 g/dl (14.0-17.9); LYMPHOCYTES # (AUTO) 0.8 X10'3 (1.1-4.8); LYMPHOCYTES % (AUTO) 4.4 % (21-51); MEAN CORPUSCULAR HEMOGLOBIN 30.5 PG (27.0-31.0); MEAN CORPUSCULAR HGB CONC 33.9 g/dL (33.0-36.5); MEAN PLATELET VOLUME 7.6 FL (7.4-10.4); MONOCYTES % (AUTO) 5.8 % (2-12); NEUTROPHILS # (AUTO) 15.5 X10'3 (1.8-7.7); NEUTROPHILS % (AUTO) 89.6 % (42-75); PLATELET COUNT 286 X10'3 (140-440); RED BLOOD COUNT 2.91 X10'6 (4.70-6.10); WHITE BLOOD COUNT 17.3 X10'3 (4.5-11.0)
[2019-07-23 03:56] LABS: ALANINE AMINOTRANSFERASE 28 U/L (12-78); ALBUMIN 1.9 G/DL (3.4-5.0); ALBUMIN/GLOBULIN RATIO 0.4 (1.1-1.5); ALKALINE PHOSPHATASE 99 IU/L (46-116); ANION GAP 10 (8-16); ASPARTATE AMINO TRANSFERASE 16 U/L (10-37); BILIRUBIN,TOTAL 0.4 MG/DL (0.1-1.0); BLOOD UREA NITROGEN 70 MG/DL (7-18); BUN/CREATININE RATIO 12.8 (5.4-32.0); CALCIUM 8.3 MG/DL (8.5-10.1); CHLORIDE 102 MMOL/L (99-107); CREATININE 5.48 MG/DL (0.60-1.10); GLUCOSE 126 MG/DL (70-104); MAGNESIUM 2.1 MG/DL (1.5-2.4); PHOSPHORUS 6.8 MG/DL (2.3-4.5); POTASSIUM 3.8 MMOL/L (3.5-5.1); SODIUM 139 MMOL/L (135-145); TOTAL CARBON DIOXIDE 27.3 MMOL/L (24-32); TOTAL PROTEIN 6.5 G/DL (6.4-8.2); VANCOMYCIN,RANDOM 26.5 UG/ML; eGFR 11 ML/MIN
[2019-07-23] MEDS: VANCOMYCIN LEVEL IV SCH (04:20)
[2019-07-23] MEDS ORDERED: NORepinephrine 8 MG in NS 250ml IV soln IV SCH (06:15)
--- NOTE | 2019-07-23 06:39 | NUR ---
Problems reprioritized. Patient report given, questions answered & plan of care reviewed with Long GOSS.
[2019-07-23 07:04] LABS: HBSAG SCREEN Negative (Negative)
[2019-07-23] MEDS: mineral oil/petrolatum ophthal oint EACHEYE SCH ×2 (08:00→14:00)
--- NOTE | 2019-07-23 08:42 | NUR ---
I have reviewed and agree with all medications administered and interventions performed by [facility] Student Americo Blakely Addendum: 07/23/19 at 0843 by Delicia Fox RT Amended: Links added.
[2019-07-23] MEDS: amLODIPine 5mg tablet PO SCH (08:59)
[2019-07-23] MEDS: fenofibrate 145mg tablet PO SCH (08:59)
[2019-07-23] MEDS: allopurinol 100mg tablet PO SCH (09:00)
[2019-07-23] MEDS: citalopram 20mg tablet PO SCH (09:00)
[2019-07-23] MEDS: clopidogrel 75mg tablet PO SCH (09:00)
[2019-07-23] MEDS: lactobacillus rhamnosus 10,000 MMU CELLS/CAPSULE PO SCH ×2 (09:00→21:24)
[2019-07-23] MEDS: metoprolol succinate 25mg (24-HOUR) SR. Tablet PO SCH (09:02)
[2019-07-23] MEDS: heparin, porcine 5000 units/ml vial SQ SCH (09:03)
[2019-07-23] MEDS ORDERED: normal saline 1000ml 1,000 ML IV SCH (09:35)
[2019-07-23] MEDS: CefTRIAXone 2gm/D5W 50ml 50 ML IV SCH (09:40)
--- NOTE | 2019-07-23 13:30 | NUR ---
Patient in room ICU 2039. I have received report from Long GOSS and had the opportunity to ask questions and assume patient care.
--- NOTE | 2019-07-23 13:45 | NUR ---
Patient arrived on unit stable to room 310. Assisted pt to bed, oriented to unit. Discussed expectations for patient behavior toward staff. Patient spoke calmly after expectations explained. Bed low/locked, side rails up x2, call light in reach.
[2019-07-23] MEDS: oxyCODONE/APAP 10/325mg tablet PO PRN ×2 (14:30→22:56)
--- NOTE | 2019-07-23 18:00 | NUR ---
Patient in room MED 310. I have received report from Radha GOSS and had the opportunity to ask questions and assume patient care.
--- NOTE | 2019-07-23 18:00 | NUR ---
Problems reprioritized. Patient report given, questions answered & plan of care reviewed with Laurie GOSS/Jenna GOSS.
--- NOTE | 2019-07-24 01:36 | NUR ---
Zafar ordered NS at 20 ml/hr to be DC'd
[2019-07-24 02:00] VITALS: BP 153/82
[2019-07-24] MEDS: VANCOMYCIN LEVEL IV SCH (03:00)
[2019-07-24] MEDS: ipratropium/albuterol 3ml nebule NEB SCH ×6 (04:08→23:00)
--- NOTE | 2019-07-24 05:46 | NUR ---
Preceptee documentation: I have reviewed and agree with all interventions, assessments performed and documented by WOLFGANG West .
--- NOTE | 2019-07-24 06:00 | NUR ---
Problems reprioritized. Patient report given, questions answered & plan of care reviewed with WOLFGANG Wright.
--- NOTE | 2019-07-24 06:30 | NUR ---
Patient in room MED 310. I have received report from Laurie GOSS and had the opportunity to ask questions and assume patient care.
[2019-07-24] MEDS: gabapentin 300mg capsule PO PRN (09:05)
[2019-07-24] MEDS: citalopram 20mg tablet PO SCH (09:05)
[2019-07-24] MEDS: clopidogrel 75mg tablet PO SCH (09:05)
[2019-07-24] MEDS: lactobacillus rhamnosus 10,000 MMU CELLS/CAPSULE PO SCH ×2 (09:05→20:46)
[2019-07-24] MEDS: allopurinol 100mg tablet PO SCH (09:06)
[2019-07-24] MEDS: metoprolol succinate 25mg (24-HOUR) SR. Tablet PO SCH (09:07)
[2019-07-24] MEDS: amLODIPine 5mg tablet PO SCH (09:07)
[2019-07-24] MEDS: fenofibrate 145mg tablet PO SCH (09:07)
[2019-07-24] MEDS: CefTRIAXone 2gm/D5W 50ml 50 ML IV SCH (09:09)
[2019-07-24 09:13] VITALS: BP 145/82
[2019-07-24] MEDS ORDERED: heparin 1,000unit/ml 10ml vial 10 ML IV ONE (09:18)
[2019-07-24] MEDS ORDERED: albumin (human) 25% 100ml IV 100 ML IV PRN (09:20)
[2019-07-24] MEDS ORDERED: epoetin 20,000 units/ml inj IV ONE (09:20)
[2019-07-24] MEDS ORDERED: heparin 1,000 units/ml 10ml inj IV ONE (09:20)
[2019-07-24] MEDS ORDERED: heparin 1,000 units/ml 10ml inj HE ONE ×2 (09:25)
--- NOTE | 2019-07-24 10:00 | NUR ---
Patient in room PCU 3019. I have received report from Adriana GOSS and had the opportunity to ask questions and assume patient care.
[2019-07-24 10:04] LABS: BASOPHILS % (AUTO) 0.3 % (0-1); EOSINOPHILS % (AUTO) 0.1 % (0-6); HEMATOCRIT 27.6 % (42.0-52.0); HEMOGLOBIN 9.4 g/dl (14.0-17.9); LYMPHOCYTES # (AUTO) 0.7 X10'3 (1.1-4.8); LYMPHOCYTES % (AUTO) 4.8 % (21-51); MEAN CORPUSCULAR HEMOGLOBIN 30.5 PG (27.0-31.0); MEAN CORPUSCULAR HGB CONC 34.1 g/dL (33.0-36.5); MEAN CORPUSCULAR VOLUME 89.4 FL (78-98); MEAN PLATELET VOLUME 7.4 FL (7.4-10.4); MONOCYTES % (AUTO) 6.7 % (2-12); NEUTROPHILS # (AUTO) 13.4 X10'3 (1.8-7.7); NEUTROPHILS % (AUTO) 88.1 % (42-75); PLATELET COUNT 337 X10'3 (140-440); RED BLOOD COUNT 3.08 X10'6 (4.70-6.10); RED CELL DISTRIBUTION WIDTH 16.5 % (11.5-14.5); WHITE BLOOD COUNT 15.3 X10'3 (4.5-11.0)
--- NOTE | 2019-07-24 10:14 | NUR ---
Reported off to David GOSS at this time on Tele, transferring patient off unit at this time.
[2019-07-24 10:20] LABS: ALANINE AMINOTRANSFERASE 24 U/L (12-78); ALBUMIN 1.9 G/DL (3.4-5.0); ALBUMIN/GLOBULIN RATIO 0.4 (1.1-1.5); ALKALINE PHOSPHATASE 100 IU/L (46-116); ANION GAP 15 (8-16); ASPARTATE AMINO TRANSFERASE 24 U/L (10-37); BILIRUBIN,TOTAL 0.5 MG/DL (0.1-1.0); BLOOD UREA NITROGEN 85 MG/DL (7-18); BUN/CREATININE RATIO 13.4 (5.4-32.0); CALCIUM 8.2 MG/DL (8.5-10.1); CHLORIDE 99 MMOL/L (99-107); CREATININE 6.35 MG/DL (0.60-1.10); GLUCOSE 144 MG/DL (70-104); PHOSPHORUS 5.2 MG/DL (2.3-4.5); POTASSIUM 3.5 MMOL/L (3.5-5.1); SODIUM 138 MMOL/L (135-145); TOTAL CARBON DIOXIDE 24.1 MMOL/L (24-32); VANCOMYCIN,RANDOM 21.9 UG/ML; eGFR 9 ML/MIN
[2019-07-24 10:30] VITALS: BP 129/71
[2019-07-24 11:00] VITALS: BP 132/73
[2019-07-24] MEDS: oxyCODONE/APAP 10/325mg tablet PO PRN ×3 (12:30→23:12)
[2019-07-24 15:00] VITALS: BP 123/65
--- NOTE | 2019-07-24 16:44 | NUR ---
Patient refused SVN tx @ this time. No Shortness of breath noted. Addendum: 07/24/19 at 1651 by Delicia Fox RT Amended: Links added.
--- NOTE | 2019-07-24 16:51 | NUR ---
pt refused tx after med was dumped in svn. Addendum: 07/24/19 at 1652 by Delicia Fox RT Amended: Links added.
--- NOTE | 2019-07-24 17:00 | NUR ---
Problems reprioritized. Patient report given, questions answered & plan of care reviewed with Erica GOSS.
--- NOTE | 2019-07-24 17:39 | NUR ---
Patient in room JEOVANY 360. I have received report from David GOSS and had the opportunity to ask questions and assume patient care.
--- NOTE | 2019-07-24 17:54 | NUR ---
patient unwilling for staff to touch him, give him a meal or take VS on him. Charge nurse aware will continue to monitor.
[2019-07-24 18:00] VITALS: BP 145/74
--- NOTE | 2019-07-24 18:08 | NUR ---
Patient in room JEOVANY 360. I have received report from WOLFGANG Maldonado and had the opportunity to ask questions and assume patient care.
--- NOTE | 2019-07-24 19:09 | NUR ---
Problems reprioritized. Patient report given, questions answered & plan of care reviewed with nidhi GOSS.
[2019-07-25 00:35] VITALS: BP 142/75
[2019-07-25] MEDS: HYDROmorphone inj. 0.5 MG/0.5 ML DISP.SYRIN IV PRN (01:12)
[2019-07-25] MEDS: VANCOMYCIN LEVEL IV SCH (03:00)
[2019-07-25] MEDS: ipratropium/albuterol 3ml nebule NEB SCH ×6 (03:00→23:51)
--- NOTE | 2019-07-25 06:27 | NUR ---
Problems reprioritized. Patient report given, questions answered & plan of care reviewed with WOLFGANG Maldonado.
--- NOTE | 2019-07-25 06:44 | NUR ---
Patient in room JEOVANY 360. I have received report from Hanna GOSS and had the opportunity to ask questions and assume patient care.
[2019-07-25 08:00] VITALS: BP 157/83
[2019-07-25] MEDS: CefTRIAXone 2gm/D5W 50ml 50 ML IV SCH (08:54)
[2019-07-25] MEDS: oxyCODONE/APAP 10/325mg tablet PO PRN ×2 (08:56→16:45)
[2019-07-25] MEDS: clopidogrel 75mg tablet PO SCH (08:56)
[2019-07-25] MEDS: lactobacillus rhamnosus 10,000 MMU CELLS/CAPSULE PO SCH ×2 (08:56→19:21)
[2019-07-25] MEDS: fenofibrate 145mg tablet PO SCH (08:57)
[2019-07-25] MEDS: amLODIPine 5mg tablet PO SCH (08:57)
[2019-07-25] MEDS: allopurinol 100mg tablet PO SCH (08:57)
[2019-07-25] MEDS: citalopram 20mg tablet PO SCH (08:59)
[2019-07-25] MEDS: metoprolol succinate 25mg (24-HOUR) SR. Tablet PO SCH (09:10)
[2019-07-25 11:00] VITALS: BP 167/80
--- NOTE | 2019-07-25 15:37 | NUR ---
Reassessment: Pt PO 100% meals improving meeting needs on HD. LBM 07/22 receiving colace. Will continue to monitor for additional protein needs on HD. Recommendations: 1. Continue renal/heart healthy/carb controlled/1.2L fluid-restricted diet per MD 2. routine bowel care 3. monitor for additional protein needs if PO declines 4. wt w/ HD Addendum: 07/25/19 at [address] Amended: Links added.
[2019-07-25] MEDS: gabapentin 300mg capsule PO PRN (16:50)
--- NOTE | 2019-07-25 17:34 | NUR ---
rt at ct with vented pt then stuck in icu with critical pt Addendum: 07/25/19 at 1735 by Delicia Fox RT Amended: Links added.
[2019-07-25 18:00] VITALS: BP 126/67
--- NOTE | 2019-07-25 18:43 | NUR ---
Problems reprioritized. Patient report given, questions answered & plan of care reviewed with Billy GOSS.
--- NOTE | 2019-07-25 19:01 | NUR ---
I have received report from Artis RN,and WOLFGANG Maldonado and had the opportunity to ask questions and assume patient care.
[2019-07-25] MEDS: gabapentin 300mg capsule PO SCH (19:21)
[2019-07-25] MEDS: oxyCODONE/APAP 5-325mg tablet PO PRN (22:09)
--- NOTE | 2019-07-25 23:41 | NUR ---
I documented the wrong time it should have been 1999 for my assessment. Addendum: 07/25/19 at 2342 by Billy Zaragoza RN Amended: Links added.
[2019-07-26] VITALS: BP 129/71
[2019-07-26] MEDS: VANCOMYCIN LEVEL IV SCH (03:00)
[2019-07-26] MEDS: ipratropium/albuterol 3ml nebule NEB SCH ×6 (03:58→23:00)
--- NOTE | 2019-07-26 06:38 | NUR ---
Problems reprioritized. Patient report given, questions answered & plan of care reviewed with WOLFGANG Nelson.
[2019-07-26 07:24] LABS: BASOPHILS % (AUTO) 0.2 % (0-1); EOSINOPHILS # (AUTO) 0.1 X10'3 (0-0.9); EOSINOPHILS % (AUTO) 0.7 % (0-6); HEMATOCRIT 32.1 % (42.0-52.0); HEMOGLOBIN 10.5 g/dl (14.0-17.9); LYMPHOCYTES # (AUTO) 1.1 X10'3 (1.1-4.8); LYMPHOCYTES % (AUTO) 7.3 % (21-51); MEAN CORPUSCULAR HEMOGLOBIN 29.9 PG (27.0-31.0); MEAN CORPUSCULAR HGB CONC 32.7 g/dL (33.0-36.5); MEAN CORPUSCULAR VOLUME 91.2 FL (78-98); MEAN PLATELET VOLUME 7.5 FL (7.4-10.4); NEUTROPHILS # (AUTO) 12.4 X10'3 (1.8-7.7); NEUTROPHILS % (AUTO) 84.8 % (42-75); PLATELET COUNT 340 X10'3 (140-440); RED BLOOD COUNT 3.52 X10'6 (4.70-6.10); RED CELL DISTRIBUTION WIDTH 16.4 % (11.5-14.5); WHITE BLOOD COUNT 14.6 X10'3 (4.5-11.0)
[2019-07-26 07:31] VITALS: BP 161/88
[2019-07-26 07:39] LABS: ALBUMIN 1.9 G/DL (3.4-5.0); ANION GAP 11 (8-16); BLOOD UREA NITROGEN 70 MG/DL (7-18); BUN/CREATININE RATIO 13.7 (5.4-32.0); CALCIUM 9.6 MG/DL (8.5-10.1); CHLORIDE 97 MMOL/L (99-107); CREATININE 5.11 MG/DL (0.60-1.10); GLUCOSE 123 MG/DL (70-104); PHOSPHORUS 6.6 MG/DL (2.3-4.5); POTASSIUM 3.5 MMOL/L (3.5-5.1); SODIUM 134 MMOL/L (135-145); VANCOMYCIN,RANDOM 13.7 UG/ML; eGFR 12 ML/MIN
[2019-07-26] MEDS: HYDROmorphone inj. 0.5 MG/0.5 ML DISP.SYRIN IV PRN ×2 (08:23→13:27)
[2019-07-26] MEDS: CefTRIAXone 2gm/D5W 50ml 50 ML IV SCH (08:27)
[2019-07-26] MEDS: fenofibrate 145mg tablet PO SCH (08:34)
[2019-07-26] MEDS: metoprolol succinate 25mg (24-HOUR) SR. Tablet PO SCH (08:34)
[2019-07-26] MEDS: allopurinol 100mg tablet PO SCH (08:34)
[2019-07-26] MEDS: amLODIPine 5mg tablet PO SCH (08:35)
[2019-07-26] MEDS: gabapentin 300mg capsule PO SCH ×2 (08:35→19:23)
[2019-07-26] MEDS: clopidogrel 75mg tablet PO SCH (08:36)
[2019-07-26] MEDS: lactobacillus rhamnosus 10,000 MMU CELLS/CAPSULE PO SCH ×2 (08:36→19:23)
[2019-07-26] MEDS: citalopram 20mg tablet PO SCH (08:37)
[2019-07-26 09:28] LABS: TOTAL CELLS COUNTED 100
[2019-07-26 09:29] LABS: HYPERSEGMENTED NEUTROPHILS FEW; LARGE PLATELETS FEW; PLATELET ESTIMATE NORMAL
[2019-07-26 09:30] LABS: TOXIC GRANULATION 1+
[2019-07-26 09:31] LABS: POLYCHROMASIA FEW
[2019-07-26 09:32] LABS: ANISOCYTOSIS 2+
[2019-07-26 11:00] VITALS: BP 135/71
--- NOTE | 2019-07-26 12:00 | NUR ---
Pt. aware of fluid restriction. Educated many times on why he is on fluid restriction. Noncompliant at times.
--- NOTE | 2019-07-26 13:01 | NUR ---
Notified MD Mistry MRI of LLE cannot be completed r/t milka in incision. Also made aware that groin wound vac has had no output and is set at 125. states to cont. settings as ordered.
--- NOTE | 2019-07-26 13:52 | NUR ---
Pt. wanting to have a confidential discussion. Stated he felt sad about the condition of his health. Summit that he was looking forward to dying. No plan to harm himself "yet" per pt. Asked if it was ok to see if emergency services director would come speak to pt. Pt. is in agreement to POC and said that it would be ok to let SS know that pt. is depressed. Paged SS.
[2019-07-26 14:47] LABS: CLARITY,URINE SLIGHTLY CLOUDY (Clear); COLOR,URINE YELLOW (Yellow); GLUCOSE, URINE NEGATIVE (Neg); KETONES,URINE NEGATIVE (Neg); LEUKOCYTE ESTERASE ,URINE NEGATIVE (Neg); NITRITES, URINE NEGATIVE (Neg); OCCULT BLOOD,URINE LARGE (Neg); PH,URINE 6.5 (4.8-8.0); PROTEIN,URINE 100 mg/dl (Neg); UROBILINOGEN,URINE 0.2 E.U/dL (0.2-1.0)
[2019-07-26 15:40] LABS: UA COLLECTION TYPE FOLEY CATH; WAXY CASTS,URINE 0-3 /LPF (NEGATIVE)
[2019-07-26 15:42] LABS: FINE GRANULAR CAST 0-3 /LPF (NEGATIVE); HYALINE CASTS 0-3 /LPF (NEGATIVE)
[2019-07-26 15:43] LABS: COARSE GRANULAR CAST 0-3 /LPF (NEGATIVE); MUCUS STRANDS FEW /LPF (Neg); SQUAMOUS EPITHELIAL CELL,UR FEW /LPF (FEW); TRANSITIONAL EPI CELLS,URINE FEW /HPF
[2019-07-26 15:44] LABS: RENAL CELLS, URINE FEW /HPF; WBC,URINE 0-4 /HPF (0-4)
[2019-07-26 15:45] LABS: BACTERIA,URINE NONE SEEN /HPF (Neg); RBC,URINE 50-100 /HPF (0-2)
--- NOTE | 2019-07-26 15:57 | NUR ---
Paged PT. to try and work with pt. again.
[2019-07-26 18:00] VITALS: BP 146/77
--- NOTE | 2019-07-26 18:14 | NUR ---
Pt. to be first dialysis pt. of the morning r/t bone scan needs to be completed as well..
--- NOTE | 2019-07-26 18:35 | NUR ---
Patient in room JEOVANY 360. I have received report from WOLFGANG Nelson and had the opportunity to ask questions and assume patient care. Went to see patient he is on the phone and seems like he is in good spirits at this time. He conversed pleasantly with me.
--- NOTE | 2019-07-26 18:59 | NUR ---
Gave report to Billy GOSS
[2019-07-26] MEDS: oxyCODONE/APAP 10/325mg tablet PO PRN (19:24)
[2019-07-27] VITALS: BP 129/65
--- NOTE | 2019-07-27 06:05 | NUR ---
Patient in room JEOVANY 360. I have received report from WOLFGANG Cervantes and had the opportunity to ask questions and assume patient care.
--- NOTE | 2019-07-27 06:15 | NUR ---
Problems reprioritized. Patient report given, questions answered & plan of care reviewed with WOLFGANG Schwarz.
[2019-07-27 07:00] VITALS: BP 154/76
[2019-07-27] MEDS: VANCOMYCIN LEVEL IV SCH (07:06)
[2019-07-27] MEDS: metoprolol succinate 25mg (24-HOUR) SR. Tablet PO SCH (08:00)
[2019-07-27] MEDS: amLODIPine 5mg tablet PO SCH (08:00)
[2019-07-27] MEDS: allopurinol 100mg tablet PO SCH (08:08)
[2019-07-27] MEDS: CefTRIAXone 2gm/D5W 50ml 50 ML IV SCH (08:08)
[2019-07-27] MEDS: citalopram 20mg tablet PO SCH (08:10)
[2019-07-27] MEDS: gabapentin 300mg capsule PO SCH ×2 (08:10→21:12)
[2019-07-27] MEDS: fenofibrate 145mg tablet PO SCH (08:10)
[2019-07-27] MEDS: clopidogrel 75mg tablet PO SCH (08:10)
[2019-07-27] MEDS: lactobacillus rhamnosus 10,000 MMU CELLS/CAPSULE PO SCH ×2 (08:10→21:12)
[2019-07-27] MEDS: oxyCODONE/APAP 10/325mg tablet PO PRN ×4 (08:13→23:02)
[2019-07-27] MEDS: ipratropium/albuterol 3ml nebule NEB SCH ×6 (08:15→23:00)
[2019-07-27] MEDS ORDERED: heparin 1,000unit/ml 10ml vial 10 ML IV ONE (08:54)
[2019-07-27] MEDS ORDERED: albumin (human) 25% 100ml IV 100 ML IV PRN (08:55)
[2019-07-27] MEDS ORDERED: heparin 1,000 units/ml 10ml inj IV ONE (08:55)
[2019-07-27] MEDS ORDERED: epoetin 20,000 units/ml inj IV ONE (08:55)
[2019-07-27] MEDS ORDERED: heparin 1,000 units/ml 10ml inj HE ONE ×2 (09:00)
[2019-07-27 09:52] LABS: HEMOGLOBIN 9.4 g/dl (14.0-17.9); MEAN CORPUSCULAR HEMOGLOBIN 30.7 PG (27.0-31.0); MEAN CORPUSCULAR HGB CONC 33.5 g/dL (33.0-36.5); MEAN CORPUSCULAR VOLUME 91.8 FL (78-98); PLATELET COUNT 319 X10'3 (140-440); RED BLOOD COUNT 3.05 X10'6 (4.70-6.10); RED CELL DISTRIBUTION WIDTH 16.5 % (11.5-14.5); WHITE BLOOD COUNT 12.7 X10'3 (4.5-11.0)
[2019-07-27 11:00] VITALS: BP 130/51
[2019-07-27 11:14] LABS: ALBUMIN 1.7 G/DL (3.4-5.0); ANION GAP 13 (8-16); BLOOD UREA NITROGEN 83 MG/DL (7-18); BUN/CREATININE RATIO 15.1 (5.4-32.0); CALCIUM 7.9 MG/DL (8.5-10.1); CHLORIDE 98 MMOL/L (99-107); CREATININE 5.51 MG/DL (0.60-1.10); GLUCOSE 134 MG/DL (70-104); PHOSPHORUS 7.1 MG/DL (2.3-4.5); POTASSIUM 3.5 MMOL/L (3.5-5.1); SODIUM 135 MMOL/L (135-145); TOTAL CARBON DIOXIDE 23.9 MMOL/L (24-32); eGFR 11 ML/MIN
--- NOTE | 2019-07-27 11:24 | NUR ---
patient sleeping doesn't want to be woken up Addendum: 07/27/19 at 1125 by Justine Peñaloza RT Amended: Links added.
--- NOTE | 2019-07-27 11:53 | NUR ---
Patient at nuclear med scan. Addendum: 07/27/19 at 1154 by Marisela Cadet RN Amended: Links added.
--- NOTE | 2019-07-27 18:35 | NUR ---
Problems reprioritized. Patient report given, questions answered & plan of care reviewed with WOLFGANG Murphy.
--- NOTE | 2019-07-27 19:28 | NUR ---
SVN Tx deferred patient on dialysis
[2019-07-28] VITALS (8 sets, daily range): BP systolic 109–150; BP diastolic 62–86
[2019-07-28] MEDS: ipratropium/albuterol 3ml nebule NEB SCH ×6 (03:00→23:00)
[2019-07-28] MEDS: VANCOMYCIN LEVEL IV SCH (03:00)
[2019-07-28 04:24] LABS: BASOPHILS % (AUTO) 0.2 % (0-1); EOSINOPHILS # (AUTO) 0.1 X10'3 (0-0.9); EOSINOPHILS % (AUTO) 1.3 % (0-6); HEMATOCRIT 24.3 % (42.0-52.0); HEMOGLOBIN 8.3 g/dl (14.0-17.9); LYMPHOCYTES # (AUTO) 1.1 X10'3 (1.1-4.8); LYMPHOCYTES % (AUTO) 10.8 % (21-51); MEAN CORPUSCULAR HEMOGLOBIN 30.9 PG (27.0-31.0); MEAN CORPUSCULAR VOLUME 90.9 FL (78-98); MEAN PLATELET VOLUME 7.9 FL (7.4-10.4); MONOCYTES # (AUTO) 0.8 X10'3 (0-0.9); MONOCYTES % (AUTO) 8.6 % (2-12); NEUTROPHILS # (AUTO) 7.7 X10'3 (1.8-7.7); NEUTROPHILS % (AUTO) 79.1 % (42-75); PLATELET COUNT 274 X10'3 (140-440); RED BLOOD COUNT 2.67 X10'6 (4.70-6.10); RED CELL DISTRIBUTION WIDTH 15.8 % (11.5-14.5); WHITE BLOOD COUNT 9.8 X10'3 (4.5-11.0)
[2019-07-28 04:38] LABS: ALBUMIN 1.6 G/DL (3.4-5.0); ANION GAP 11 (8-16); BLOOD UREA NITROGEN 54 MG/DL (7-18); BUN/CREATININE RATIO 14.2 (5.4-32.0); CALCIUM 7.6 MG/DL (8.5-10.1); CHLORIDE 104 MMOL/L (99-107); CREATININE 3.81 MG/DL (0.60-1.10); GLUCOSE 97 MG/DL (70-104); MAGNESIUM 1.4 MG/DL (1.5-2.4); PHOSPHORUS 5.3 MG/DL (2.3-4.5); POTASSIUM 3.5 MMOL/L (3.5-5.1); SODIUM 141 MMOL/L (135-145); VANCOMYCIN,RANDOM 15.4 UG/ML; eGFR 16 ML/MIN
[2019-07-28] MEDS: citalopram 20mg tablet PO SCH (08:29)
[2019-07-28] MEDS: metoprolol succinate 25mg (24-HOUR) SR. Tablet PO SCH (08:29)
[2019-07-28] MEDS: amLODIPine 5mg tablet PO SCH (08:30)
[2019-07-28] MEDS: gabapentin 300mg capsule PO SCH ×2 (08:30→20:05)
[2019-07-28] MEDS: fenofibrate 145mg tablet PO SCH (08:30)
[2019-07-28] MEDS: lactobacillus rhamnosus 10,000 MMU CELLS/CAPSULE PO SCH ×2 (08:30→20:05)
[2019-07-28] MEDS: clopidogrel 75mg tablet PO SCH (08:30)
[2019-07-28] MEDS: CefTRIAXone 2gm/D5W 50ml 50 ML IV SCH (08:30)
[2019-07-28] MEDS: allopurinol 100mg tablet PO SCH (08:30)
[2019-07-28] MEDS: HYDROmorphone inj. 0.5 MG/0.5 ML DISP.SYRIN IV PRN ×3 (08:37→20:23)
--- NOTE | 2019-07-28 11:11 | NUR ---
patient refused svn tx
--- NOTE | 2019-07-28 14:34 | NUR ---
Per patient, he had bowel movement last night
--- NOTE | 2019-07-28 14:52 | NUR ---
patient [id number] [place] sleeping dosent want to be woken up Addendum: 07/28/19 at 1454 by Justine Peñaloza RT Amended: Links added.
--- NOTE | 2019-07-28 16:15 | NUR ---
Rapid Response A rapid response was called on this patient. On arrival to bedside, the patient was on the [facility], 2 paramedics at bedside with the primary RN. Patient suddenly become unresponsive. Patient about to transfer to [facility], getting ready to be discharge from our hospital. Upon transferring from bed to [facility], patient stated "I feel like I'm gonna pass out", patient look terrified.Paramedics transferred patient to [facility] immediately suddenly patient become less responsive until eventually not responding to shaking. Paramedics checked the pulse, did not find the pulse. Confirmed to paramedics that patient is DNR, order in the chart confirmed DNR status. Rapid response called immediately. Interventions: Crash cart brought to the patient's room, bedside nurse (myself), 2 EMS staff, charge nurse Cheyanne, RT, [employer] Operations Division are at bedside. Patient on the portable monitor shows PEA (no pulse detected with rhythm, agonal breathing noted. RT placed patient on mask for oxygenation. After about 2 minutes, pulse were detected. BP was 121/78, pulse rate of 114, 96% on 10 lpm/nc. Patient started to open his eyes, breathing regularly. Dr. Jeter notified about this, he came to patient's room. He ordered some lab tests & EKG. Dr. Mistry notified over the phone about the situation. Distal pulses checked, positive on doppler, skin color pink, warm to touch. Rapid response outcome: Patient unable to remember what happened. He is alert, oriented x 4. Transferred to PCU
[2019-07-28] MEDS ORDERED: dextrose 50%-water 50ml dispensing syringe IV ONE (16:17)
--- NOTE | 2019-07-28 16:50 | NUR ---
Notified case coordinator that patient had a rapid response called upon attempting to transfer patient to another care facility. nutrition services manager is going to notify LT[facility] that patient is no longer transferring to there facility.
--- NOTE | 2019-07-28 17:00 | NUR ---
Pt arrived to floor from surgical, transported in bed. Her is A&Ox4, NAD, 2 lpm O2 via mask, VSS . PICC nurse present to place PIV. Recieved report from WOLFGANG Clark
[2019-07-28 17:04] LABS: BASOPHILS % (AUTO) 0.2 % (0-1); EOSINOPHILS # (AUTO) 0.1 X10'3 (0-0.9); EOSINOPHILS % (AUTO) 0.8 % (0-6); HEMATOCRIT 29.3 % (42.0-52.0); HEMOGLOBIN 9.6 g/dl (14.0-17.9); LYMPHOCYTES % (AUTO) 13.3 % (21-51); MEAN CORPUSCULAR HEMOGLOBIN 30.1 PG (27.0-31.0); MEAN CORPUSCULAR HGB CONC 32.7 g/dL (33.0-36.5); MEAN CORPUSCULAR VOLUME 92.3 FL (78-98); MEAN PLATELET VOLUME 7.9 FL (7.4-10.4); MONOCYTES # (AUTO) 1.3 X10'3 (0-0.9); MONOCYTES % (AUTO) 8.8 % (2-12); NEUTROPHILS # (AUTO) 11.7 X10'3 (1.8-7.7); NEUTROPHILS % (AUTO) 76.9 % (42-75); PLATELET COUNT 383 X10'3 (140-440); RED BLOOD COUNT 3.17 X10'6 (4.70-6.10); RED CELL DISTRIBUTION WIDTH 15.9 % (11.5-14.5); WHITE BLOOD COUNT 15.2 X10'3 (4.5-11.0)
--- NOTE | 2019-07-28 17:24 | NUR ---
Report given to Brad GOSS from [facility]
[2019-07-28 17:26] LABS: ALANINE AMINOTRANSFERASE 17 U/L (12-78); ALBUMIN 1.8 G/DL (3.4-5.0); ALBUMIN/GLOBULIN RATIO 0.3 (1.1-1.5); ALKALINE PHOSPHATASE 108 IU/L (46-116); ANION GAP 13 (8-16); ASPARTATE AMINO TRANSFERASE 36 U/L (10-37); BILIRUBIN,TOTAL 0.3 MG/DL (0.1-1.0); BLOOD UREA NITROGEN 68 MG/DL (7-18); BUN/CREATININE RATIO 14.6 (5.4-32.0); CALCIUM 8.6 MG/DL (8.5-10.1); CHLORIDE 96 MMOL/L (99-107); CREATININE 4.67 MG/DL (0.60-1.10); GLUCOSE 136 MG/DL (70-104); MAGNESIUM 1.5 MG/DL (1.5-2.4); PHOSPHORUS 6.8 MG/DL (2.3-4.5); POTASSIUM 4.4 MMOL/L (3.5-5.1); SODIUM 132 MMOL/L (135-145); TOTAL CARBON DIOXIDE 22.7 MMOL/L (24-32); TOTAL PROTEIN 8.1 G/DL (6.4-8.2); eGFR 13 ML/MIN
[2019-07-28] MEDS: oxyCODONE/APAP 10/325mg tablet PO PRN (17:32)
--- NOTE | 2019-07-28 18:00 | NUR ---
Problems reprioritized. Patient report given, questions answered & plan of care reviewed with WOLFGANG Weinberg.
--- NOTE | 2019-07-28 18:48 | NUR ---
Patient in room PCU 3028. I have received report from Valerie GOSS and had the opportunity to ask questions and assume patient care.
--- NOTE | 2019-07-28 23:10 | NUR ---
Call Rich Pulliam to report the increased troponins. He is aware and will let him know if the 12 hour is increased.
[2019-07-29] MEDS: piperacillin/tazo 3.375gm/50ml 50 ML IV SCH ×2 (00:19→09:30)
[2019-07-29] MEDS: oxyCODONE/APAP 5-325mg tablet PO PRN (00:35)
[2019-07-29 02:30] VITALS: BP 111/62
[2019-07-29] MEDS: ipratropium/albuterol 3ml nebule NEB SCH ×2 (03:00→08:19)
[2019-07-29] MEDS: VANCOMYCIN LEVEL IV SCH (03:00)
[2019-07-29 04:21] LABS: BASOPHILS % (AUTO) 0.4 % (0-1); EOSINOPHILS # (AUTO) 0.2 X10'3 (0-0.9); EOSINOPHILS % (AUTO) 1.7 % (0-6); HEMATOCRIT 26.1 % (42.0-52.0); HEMOGLOBIN 8.6 g/dl (14.0-17.9); LYMPHOCYTES # (AUTO) 1.5 X10'3 (1.1-4.8); LYMPHOCYTES % (AUTO) 12.6 % (21-51); MEAN CORPUSCULAR HEMOGLOBIN 30.2 PG (27.0-31.0); MEAN CORPUSCULAR VOLUME 91.7 FL (78-98); MEAN PLATELET VOLUME 7.8 FL (7.4-10.4); MONOCYTES # (AUTO) 1.1 X10'3 (0-0.9); MONOCYTES % (AUTO) 9.3 % (2-12); PLATELET COUNT 321 X10'3 (140-440); RED BLOOD COUNT 2.84 X10'6 (4.70-6.10); WHITE BLOOD COUNT 11.8 X10'3 (4.5-11.0)
[2019-07-29 04:36] LABS: ALBUMIN 1.8 G/DL (3.4-5.0); ANION GAP 12 (8-16); BLOOD UREA NITROGEN 73 MG/DL (7-18); BUN/CREATININE RATIO 15.4 (5.4-32.0); CALCIUM 8.5 MG/DL (8.5-10.1); CHLORIDE 97 MMOL/L (99-107); CREATININE 4.75 MG/DL (0.60-1.10); GLUCOSE 90 MG/DL (70-104); MAGNESIUM 1.4 MG/DL (1.5-2.4); PHOSPHORUS 6.7 MG/DL (2.3-4.5); POTASSIUM 3.8 MMOL/L (3.5-5.1); SODIUM 135 MMOL/L (135-145); TOTAL CARBON DIOXIDE 25.8 MMOL/L (24-32); TROPONIN I 0.15 NG/ML (0.0-0.05); VANCOMYCIN,RANDOM 12.8 UG/ML; eGFR 13 ML/MIN
[2019-07-29] MEDS ORDERED: vancomycin/NS 500MG ADD-VANT 100 ML IV ONE (04:55)
[2019-07-29] MEDS ORDERED: vancomycin/NS 1 GM ADD-VANTAGE 250 ML X 1 DOSE IV ONE (04:55)
[2019-07-29 06:00] VITALS: BP 119/65
--- NOTE | 2019-07-29 06:09 | NUR ---
Problems reprioritized. Patient report given, questions answered & plan of care reviewed with Hitesh GOSS.
--- NOTE | 2019-07-29 06:57 | NUR ---
Patient in room PCU 3028. I have received report from Lenard GOSS and had the opportunity to ask questions and assume patient care.
[2019-07-29] MEDS: lactobacillus rhamnosus 10,000 MMU CELLS/CAPSULE PO SCH (07:21)
[2019-07-29] MEDS: clopidogrel 75mg tablet PO SCH (07:21)
[2019-07-29] MEDS: citalopram 20mg tablet PO SCH (07:21)
[2019-07-29] MEDS: amLODIPine 5mg tablet PO SCH (07:21)
[2019-07-29] MEDS: gabapentin 300mg capsule PO SCH (07:21)
[2019-07-29] MEDS: metoprolol succinate 25mg (24-HOUR) SR. Tablet PO SCH (07:22)
[2019-07-29] MEDS: allopurinol 100mg tablet PO SCH (07:22)
[2019-07-29] MEDS: fenofibrate 145mg tablet PO SCH (07:22)
[2019-07-29] MEDS ORDERED: heparin 1,000unit/ml 10ml vial 10 ML IV ONE (08:54)
[2019-07-29] MEDS ORDERED: normal saline 1000ml 250 ML IV PRN (08:54)
[2019-07-29] MEDS ORDERED: epoetin 20,000 units/ml inj IV ONE (08:55)
[2019-07-29] MEDS ORDERED: heparin 1,000 units/ml 10ml inj HE ONE ×2 (09:00)
[2019-07-29 11:00] VITALS: BP 105/54
--- NOTE | 2019-07-29 11:39 | NUR ---
Reassessment: Pt s/p distal redo femoral bypass per MD notes. Patient -6 kg since admit, likely r/t to fluid given HD, edema, and negative 10,825 mL fluid balance over the last 5 days per I&O. Pt continues with 100% PO intake on renal heart healthy diet. D/w dietary to send double protein BIDLD for satiety as well as provide adequate protein to meet the demands of HD, wound healing, and skin integrity. Fluid restriction has been liberalized to 2.0 L/day. LBM 07/27. Will continue to follow. Recommendations: 1. Continue renal/heart healthy/2.30L fluid-restricted diet per MD 2. Double meat BIDLD 3. Phos binder with MD approval, Phos 6.7 today 4. routine bowel care 5. wt w/ HD Addendum: 07/29/19 at [address] Amended: Links added.
--- NOTE | 2019-07-29 13:09 | NUR ---
received orders from Dr Jeter to continue PT and contact CM to work on transfer to [facility], CM paged
[2019-07-29] MEDS: oxyCODONE/APAP 10/325mg tablet PO PRN (14:36)
--- NOTE | 2019-07-29 14:36 | NUR ---
Pt c/o 9/10 pain in leg and foot, requesting pain medication. Pain medication reviewed and administered by student RNRichard per hospital policy.
--- NOTE | 2019-07-29 16:09 | NUR ---
Pt is transferred to [facility] as scheduled @ 1500, report was given to Deana LOERA, pt was transferred to [facility] with 2 director heart, f/c emptied, tele monitor 57 returned, pt had a BM prior to transfer, wound to BLE dresing CDI, wound vac disconnected and dressing still in place with good seal, all belongings w/ pt at time of discharge.
[2019-07-30] MEDS ORDERED: gabapentin 300mg capsule PO SCH (08:00)
[2019-07-30] MEDS ORDERED: ALB520 INH (14:43)
[2019-07-30] MEDS ORDERED: ATR0.5NEB IH (14:43)
[2019-07-30] MEDS ORDERED: CLOP75TA15 PO (14:43)
[2019-07-30] MEDS ORDERED: LACT1CAP94 PO (14:43)
[2019-07-30] MEDS ORDERED: BECL7.3A INH (14:43)
[2019-07-30] MEDS ORDERED: CEFT2VIA13 IV (14:43)
== END 2019-07-29 15:59 | DRG 181 ==
LOC: ER 23:08 → ED HOLD 07-19 00:41 → ORTHO 4S 07-19 02:30 → ICU 2S 07-20 17:20 → MED 3N 07-23 14:10 → PCU 3S 07-24 10:26 → SUR 3N 07-24 17:21 → PCU 3S 07-28 17:20
PROVIDERS: ADMIT Hospitalist; ATTEND Internal Medicine Critical Care Medicine
PROC: B41G1ZZ Fluoroscopy of Left Lower Extremity Arteries using Low Osmolar Contrast (ICD-10-PCS; 2019-07-20)
PROC: 3E03317 Introduction of Other Thrombolytic into Peripheral Vein, Percutaneous Approach (ICD-10-PCS; 2019-07-20)
PROC: 0YHB33Z Insertion of Infusion Device into Left Lower Extremity, Percutaneous Approach (ICD-10-PCS; 2019-07-20)
PROC: B41G1ZZ Fluoroscopy of Left Lower Extremity Arteries using Low Osmolar Contrast (ICD-10-PCS; 2019-07-21)
PROC: 02HV33Z Insertion of Infusion Device into Superior Vena Cava, Percutaneous Approach (ICD-10-PCS; 2019-07-21)
PROC: 5A1D70Z Performance of Urinary Filtration, Intermittent, Less than 6 Hours Per Day (ICD-10-PCS; 2019-07-21)
PROC: 041L09Q Bypass Left Femoral Artery to Lower Extremity Artery with Autologous Venous Tissue, Open Approach (ICD-10-PCS; principal; 2019-07-22)
PROC: 06BP3ZZ Excision of Right Saphenous Vein, Percutaneous Approach (ICD-10-PCS; 2019-07-22)
PROC: 5A1D70Z Performance of Urinary Filtration, Intermittent, Less than 6 Hours Per Day (ICD-10-PCS; 2019-07-22)
PROC: 5A1D70Z Performance of Urinary Filtration, Intermittent, Less than 6 Hours Per Day (ICD-10-PCS; 2019-07-24)
PROC: CP1D1ZZ Planar Nuclear Medicine Imaging of Left Lower Extremity using Technetium 99m (Tc-99m) (ICD-10-PCS; 2019-07-27)
PROC: 5A1D70Z Performance of Urinary Filtration, Intermittent, Less than 6 Hours Per Day (ICD-10-PCS; 2019-07-27)
PROC: 5A1D70Z Performance of Urinary Filtration, Intermittent, Less than 6 Hours Per Day (ICD-10-PCS; 2019-07-29)
DX: T82.898A Other specified complication of vascular prosthetic devices, implants and grafts, initial encounter (principal); N17.0 Acute kidney failure with tubular necrosis; A41.9 Sepsis, unspecified organism; G93.41 Metabolic encephalopathy; E11.22 Type 2 diabetes mellitus with diabetic chronic kidney disease; I42.9 Cardiomyopathy, unspecified; L03.115 Cellulitis of right lower limb; E11.42 Type 2 diabetes mellitus with diabetic polyneuropathy; N18.4 Chronic kidney disease, stage 4 (severe); E11.51 Type 2 diabetes mellitus with diabetic peripheral angiopathy without gangrene; E78.1 Pure hyperglyceridemia; Y83.2 Surgical operation with anastomosis, bypass or graft as the cause of abnormal reaction of the patient, or of later complication, without mention of misadventure at the time of the procedure; I13.10 Hypertensive heart and chronic kidney disease without heart failure, with stage 1 through stage 4 chronic kidney disease, or unspecified chronic kidney disease; E86.0 Dehydration; E78.5 Hyperlipidemia, unspecified; J43.9 Emphysema, unspecified; F11.90 Opioid use, unspecified, uncomplicated; F14.90 Cocaine use, unspecified, uncomplicated; F15.10 Other stimulant abuse, uncomplicated; F17.210 Nicotine dependence, cigarettes, uncomplicated; I25.10 Atherosclerotic heart disease of native coronary artery without angina pectoris; I99.8 Other disorder of circulatory system; M10.9 Gout, unspecified; L03.116 Cellulitis of left lower limb; Z66 Do not resuscitate; Z79.02 Long term (current) use of antithrombotics/antiplatelets; Z86.79 Personal history of other diseases of the circulatory system; Z91.19 Patient's noncompliance with other medical treatment and regimen; I25.2 Old myocardial infarction; Y92.89 Other specified places as the place of occurrence of the external cause; Z88.5 Allergy status to narcotic agent
CPT/HCPCS: 36245; 36415; 36580; 36600; 37211; 37213; 71045; 73590; 75710; 76000; 76937; 77001; 78315; 80048; 80053; 80061; 80069; 80202; 80305; 81001; 82550; 82803; 82948; 83036; 83605; 83735; 84100; 84145; 84484; 85018; 85025; 85027; 85384; 85610; 85730; 86870; 86885; 86900; 86901; 86902; 86905; 87040; 87070; 87081; 87340; 93005; 93306; 93308; 93922; 93925; 93970; 94002; 94640; 94760; 96374; 97110; 97112; 97116; 97162; 97530; 97760; 99152; 99153; 99291; A4618; A6258; A6455; A7000; A9503; C1729; C1751; C1769; C1894; G0257; G0378; J0690; J0696; J1100; J1170; J1644; J2250; J2270; J2405; J2543; J2997; J3010; J3370; J7030; J7040; J7120; P9045; P9047; Q4081; Q9967

== ENCOUNTER 2019-07-30 14:23 | Day surgery (SDC) | payer MEDICAID ==
[2019-07-30] VITALS (7 sets, daily range): BP systolic 144–169; BP diastolic 70–89
[~2019-07-30 14:23] MED LIST changes: +TRAM50TA2 PO
[2019-07-30] MEDS ORDERED: CLOP75TA15 PO (14:43)
[2019-07-30] MEDS ORDERED: ATR0.5NEB IH (14:43)
[2019-07-30] MEDS ORDERED: LACT1CAP94 PO (14:43)
[2019-07-30] MEDS ORDERED: CEFT2VIA13 IV (14:43)
[2019-07-30] MEDS ORDERED: BECL7.3A INH (14:43)
[2019-07-30] MEDS ORDERED: ALB520 INH (14:43)
[2019-07-30] MEDS ORDERED: LIDOcaine 1% w/epiNEPHrine 1:200,000 30ml vial ONE (15:35)
[2019-07-30] MEDS ORDERED: heparin 1,000unit/ml 10ml vial 10 ML ONE (15:35)
== END 2019-07-30 18:30 ==
LOC: SSTAY O 14:23
PROVIDERS: ATTEND Radiology Vascular & Interventional Radiology
DX: N18.4 Chronic kidney disease, stage 4 (severe) (principal); N17.9 Acute kidney failure, unspecified; Z88.5 Allergy status to narcotic agent; Z79.899 Other long term (current) drug therapy; Z99.2 Dependence on renal dialysis; F17.210 Nicotine dependence, cigarettes, uncomplicated; Z72.89 Other problems related to lifestyle
CPT/HCPCS: 36558; 76937; 77001; C1750; C1769; C1894; J1644; A9270

== ENCOUNTER 2019-11-24 12:34 | Outpatient (CLI) | payer MEDICAID ==
[~2019-11-24 12:34] MED LIST changes: +ALB520 INH; +ATR0.5NEB IH; -BECL10.62 INH; +BECL7.3A INH; +CEFT2VIA13 IV; +CLOP75TA15 PO; -FURO-150 PO; +LACT1CAP94 PO; -NITR0.4T51 SL; -TRAM50TA2 PO
[2019-11-24 13:54] LABS: BASOPHILS % (AUTO) 0.4 % (0-1); EOSINOPHILS # (AUTO) 0.2 X10'3 (0-0.9); EOSINOPHILS % (AUTO) 2.6 % (0-6); HEMATOCRIT 33.9 % (42.0-52.0); HEMOGLOBIN 11.3 g/dl (14.0-17.9); LYMPHOCYTES # (AUTO) 2.5 X10'3 (1.1-4.8); LYMPHOCYTES % (AUTO) 33.2 % (21-51); MEAN CORPUSCULAR HEMOGLOBIN 30.4 PG (27.0-31.0); MEAN CORPUSCULAR HGB CONC 33.5 g/dL (33.0-36.5); MEAN CORPUSCULAR VOLUME 90.7 FL (78-98); MONOCYTES # (AUTO) 0.6 X10'3 (0-0.9); MONOCYTES % (AUTO) 7.7 % (2-12); NEUTROPHILS # (AUTO) 4.2 X10'3 (1.8-7.7); NEUTROPHILS % (AUTO) 56.1 % (42-75); PLATELET COUNT 291 X10'3 (140-440); RED BLOOD COUNT 3.74 X10'6 (4.70-6.10); RED CELL DISTRIBUTION WIDTH 16.4 % (11.5-14.5); WHITE BLOOD COUNT 7.5 X10'3 (4.5-11.0)
[2019-11-24 13:58] LABS: ALBUMIN 3.4 G/DL (3.4-5.0); ANION GAP 11 (8-16); BLOOD UREA NITROGEN 39 MG/DL (7-18); BUN/CREATININE RATIO 8.3 (5.4-32.0); CALCIUM 9.1 MG/DL (8.5-10.1); CHLORIDE 102 MMOL/L (99-107); CREATININE 4.72 MG/DL (0.60-1.10); GLUCOSE 95 MG/DL (70-104); POTASSIUM 4.6 MMOL/L (3.5-5.1); SODIUM 138 MMOL/L (135-145); TOTAL CARBON DIOXIDE 25.3 MMOL/L (24-32); eGFR 13 ML/MIN
== END 2019-11-24 23:56 | disposition home or self-care (01) ==
LOC: LAB 12:34
PROVIDERS: ATTEND Surgery
DX: R10.84 Generalized abdominal pain (principal)
CPT/HCPCS: 36415; 80048; 84145; 85025

== ENCOUNTER 2019-12-08 11:20 | Outpatient (CLI) | payer MEDICAID | END 2019-12-08 23:59 | disposition home or self-care (01) | LOC: VAS 11:20 | PROVIDERS: ATTEND Surgery | DX: I70.202 Unspecified atherosclerosis of native arteries of extremities, left leg (principal) | CPT/HCPCS: 93971 ==

== ENCOUNTER 2020-09-09 12:22 | Emergency (ER) | payer MEDICAID ==
[~2020-09-09] VITALS: Ht 182.9 cm; Wt 120.5 kg
[2020-09-09] MEDS ORDERED: albuterol 2.5 MG/3 ML nebule NEB ONE (13:35)
[2020-09-09] MEDS ORDERED: predniSONE 20 mg tablet PO ONE (13:35)
[2020-09-09] MEDS ORDERED: methylPREDNISolone sod succ 125mg/2ml vial IV ONE (13:35)
[2020-09-09] MEDS ORDERED: nitroGLYCERIN 0.4mg SUBLingual tab SL PRN (13:50)
[2020-09-09 14:33] LABS: BASOPHILS % (AUTO) 0.6 % (0-1); EOSINOPHILS # (AUTO) 0.2 X10'3 (0-0.9); EOSINOPHILS % (AUTO) 2.3 % (0-6); HEMATOCRIT 28.9 % (42.0-52.0); LYMPHOCYTES # (AUTO) 1.3 X10'3 (1.1-4.8); LYMPHOCYTES % (AUTO) 17.3 % (21-51); MEAN CORPUSCULAR HEMOGLOBIN 33.8 PG (27.0-31.0); MEAN CORPUSCULAR HGB CONC 34.4 g/dL (33.0-36.5); MEAN CORPUSCULAR VOLUME 98.2 FL (78-98); MONOCYTES # (AUTO) 0.5 X10'3 (0-0.9); MONOCYTES % (AUTO) 6.4 % (2-12); NEUTROPHILS # (AUTO) 5.5 X10'3 (1.8-7.7); NEUTROPHILS % (AUTO) 73.4 % (42-75); PLATELET COUNT 216 X10'3 (140-440); RED BLOOD COUNT 2.95 X10'6 (4.70-6.10); RED CELL DISTRIBUTION WIDTH 14.4 % (11.5-14.5); WHITE BLOOD COUNT 7.4 X10'3 (4.5-11.0)
[2020-09-09 14:53] LABS: ALANINE AMINOTRANSFERASE 32 U/L (12-78); ALBUMIN 2.9 G/DL (3.4-5.0); ALBUMIN/GLOBULIN RATIO 0.6 (1.1-1.5); ALKALINE PHOSPHATASE 50 IU/L (46-116); ANION GAP 14 (8-16); ASPARTATE AMINO TRANSFERASE 45 U/L (10-37); BILIRUBIN,TOTAL 0.3 MG/DL (0.1-1.0); BLOOD UREA NITROGEN 86 MG/DL (7-18); BUN/CREATININE RATIO 8.9 (5.4-32.0); CALCIUM 7.5 MG/DL (8.5-10.1); CHLORIDE 104 MMOL/L (99-107); CREATININE 9.62 MG/DL (0.60-1.10); GLUCOSE 73 MG/DL (70-104); POTASSIUM 4.6 MMOL/L (3.5-5.1); SODIUM 138 MMOL/L (135-145); TOTAL CARBON DIOXIDE 20.3 MMOL/L (24-32); TOTAL PROTEIN 7.5 G/DL (6.4-8.2); eGFR 6 ML/MIN
--- NOTE | 2020-09-09 15:12 | NUR ---
Discussed pt's Trop and relief from Nitro w/ COLETTE Garcia and MADY Ibanez. New order for asa 324 receied.
[2020-09-09] MEDS ORDERED: aspirin 81mg tab.chew PO ONE (15:15)
[2020-09-09] MEDS ORDERED: ondansetron/PF 4mg/2ml inj IV ONE (15:45)
[2020-09-09] MEDS ORDERED: morphine 4 MG/ML inj SYRINge IV ONE (15:45)
[2020-09-09] MEDS ORDERED: ipratropium/albuterol 3ml nebule NEB ONE (16:20)
--- NOTE | 2020-09-09 16:55 | NUR ---
MADY Ibanez and COLETTE Garcia bedside engaged in US.
[2020-09-09 19:26] VITALS: BP 142/95
== END 2020-09-09 18:40 | disposition home or self-care (01) ==
LOC: ER 12:23
DX: J44.1 Chronic obstructive pulmonary disease with (acute) exacerbation (principal); G89.29 Other chronic pain; G62.89 Other specified polyneuropathies; E11.22 Type 2 diabetes mellitus with diabetic chronic kidney disease; N18.9 Chronic kidney disease, unspecified; I25.10 Atherosclerotic heart disease of native coronary artery without angina pectoris; F17.200 Nicotine dependence, unspecified, uncomplicated; Z88.5 Allergy status to narcotic agent; Z79.899 Other long term (current) drug therapy
CPT/HCPCS: 36415; 71045; 80053; 83880; 84484; 85025; 93005; 94640; 96374; 99285; J2930; J7512; 94760

== ENCOUNTER 2020-11-23 18:00 | Emergency (ER) | payer MEDICARE, MEDICAID ==
[~2020-11-23] VITALS: Ht 182.9 cm; Wt 110.0 kg
[~2020-11-23 18:00] MED LIST changes: -ALLO100T PO; +ALLO100T49 PO; -ATOR20TA66 PO; -ATR0.5NEB IH; +ATRIN IH; -BECL7.3A INH; +BUPR75TA12 PO; -CEFT2VIA13 IV; -CITA20TA2 PO; +DULO30CA52 PO; +FAMO20TA8 PO; +FENO145T25 PO; -FENO145T38 PO; -GABA-532 PO; +GABA600T13 PO; -LACT1CAP94 PO; -METO-384 PO; +METO-411 PO; +PRED10TA PO; +VALS160T30 PO
[2020-11-23] MEDS ORDERED: oxyCODONE/APAP 10/325mg tablet PO ONE (19:35)
[2020-11-23 19:54] VITALS: BP 148/94
== END 2020-11-23 19:57 | disposition home or self-care (01) ==
LOC: ER 18:01
DX: S40.022A Contusion of left upper arm, initial encounter (principal); M79.602 Pain in left arm; E11.22 Type 2 diabetes mellitus with diabetic chronic kidney disease; N18.6 End stage renal disease; E11.42 Type 2 diabetes mellitus with diabetic polyneuropathy; I25.10 Atherosclerotic heart disease of native coronary artery without angina pectoris; I50.9 Heart failure, unspecified; J44.9 Chronic obstructive pulmonary disease, unspecified; G89.29 Other chronic pain; M10.9 Gout, unspecified; Z99.2 Dependence on renal dialysis; Z98.890 Other specified postprocedural states; Z88.8 Allergy status to other drugs, medicaments and biological substances; Z79.899 Other long term (current) drug therapy; X58.XXXA Exposure to other specified factors, initial encounter; Y93.89 Activity, other specified; Y92.89 Other specified places as the place of occurrence of the external cause; Y99.8 Other external cause status
CPT/HCPCS: 73080; 99284